=== PATIENT | female | born 1980 | race Caucasian/White ===

== ENCOUNTER 2017-04-04 02:48 | Emergency (ER) | payer MEDICARE, MEDICAID ==
[2017-04-04 03:02] VITALS: BP 121/58
[2017-04-04] MEDS ORDERED: IBUPROFEN 800 MG TABLET PO ONE (04:03)
[2017-04-04] MEDS ORDERED: MORPHINE SULFATE IR 15 MG TABLET PO ONE (04:05)
--- NOTE | 2017-04-04 04:13 | ER Document Report ---
ED General - General Chief Complaint: Breast Lump Stated Complaint: PAIN IN LEFT BREAST Time Seen by Provider: 04/04/17 03:53 Notes: Patient is a 37-year-old female who presents with 24 hours of pain to an area just below her left nipple. States that she saw her primary care doctor a week ago and this cystic mass was incidentally noticed. She is scheduled for a mammogram this upcoming week. States that over the past 24 hours it has become acutely painful and she does describe a constant, stabbing, severe pain to the affected area. It is worsened by touching the area. Nothing has been tried to improve the pain. No history of similar symptoms in the past. She denies any fever or constitutional symptoms. TRAVEL OUTSIDE OF THE [place] IN LAST 30 DAYS: No Past Medical History - General Information source: Patient - Social History Smoking Status: Never Smoker Frequency of alcohol use: None Drug Abuse: None Lives with: Spouse/Significant other Family History: Reviewed & Not Pertinent Patient has suicidal ideation: No Patient has homicidal ideation: No Renal/ Medical History: Denies: Hx Peritoneal Dialysis Review of Systems - Review of Systems Notes: Constitutional: Negative for fever. HENT: Negative for sore throat. Eyes: Negative for visual changes. Cardiovascular: Negative for chest pain. Respiratory: Negative for shortness of breath. Gastrointestinal: Negative for abdominal pain, vomiting or diarrhea. Genitourinary: Negative for dysuria. Musculoskeletal: Positive for left breast pain Skin: Negative for rash. Neurological: Negative for headaches, weakness or numbness. 10 point ROS negative except as marked above and in HPI. Physical Exam - Vital signs Vitals: Temp Pulse Resp BP Pulse Ox 98.5 F 89 20 121/58 L 100 04/04/17 03:01 04/04/17 03:01 04/04/17 03:01 04/04/17 03:01 04/04/17 03:01 Interpretation: Normal Notes: PHYSICAL EXAMINATION: GENERAL: Well-appearing, well-nourished and in no acute distress. HEAD: Atraumatic, normocephalic. EYES: Pupils equal round and reactive to light, extraocular movements intact, sclera anicteric, conjunctiva are normal. ENT: nares patent, oropharynx clear without exudates. Moist mucous membranes. NECK: Normal range of motion, supple without lymphadenopathy LUNGS: Breath sounds clear to auscultation bilaterally and equal. No wheezes rales or rhonchi. HEART: Regular rate and rhythm without murmurs Breasts: There is a small quarter centimeter by quarter centimeter cystic, mobile, exquisitely tender lesion just below the left areole a without induration, discharge from the nipple, or erythema. ABDOMEN: Soft, nontender, normoactive bowel sounds. No guarding, no rebound. No masses appreciated. EXTREMITIES: Normal range of motion, no pitting or edema. No cyanosis. NEUROLOGICAL: No focal neurological deficits. Moves all extremities spontaneously and on command. PSYCH: Normal mood, normal affect. SKIN: Warm, Dry, normal turgor, no rashes or lesions noted. Course - Re-evaluation Re-evalutation: 04/04/17 04:01 Patient presents with a painful, mobile, cystic lump to her left lower breast approximately 1/4 cm below the areola. There is no erythema or induration of the skin to suggest an acute abscess. She has no constitutional symptoms. She is already scheduled for an outpatient mammogram and consideration of biopsy which I believe is appropriate. No indication for additional acute labs or imaging at this time. Overall I suspect this is an inflamed cyst based on exam and history but I have instructed the patient to follow-up with her primary care doctor as scheduled for both a mammogram and biopsy to exclude a more concerning pathology. - Vital Signs Vital signs: Temp Pulse Resp BP Pulse Ox 98.5 F 89 20 121/58 L 100 04/04/17 03:01 04/04/17 03:01 04/04/17 03:01 04/04/17 03:01 04/04/17 03:01 Discharge - Discharge Clinical Impression: Left breast mass Condition: Good Disposition: HOME, SELF-CARE Additional Instructions: Please follow-up with your primary care doctor for the mammogram as scheduled. Take ibuprofen 800mg every 6 hours as needed for pain. You can apply lidocaine to the area as needed. There is a proximal [id number] cold Aspercreme with lidocaine which will work well. Return if you develop fever greater than 100.4F, increasing pain to the area, vomiting, difficulty breathing or any other symptoms that are worrisome to you.
== END 2017-04-04 05:15 | disposition home or self-care (01) ==
LOC: ER 02:48
DX: N63 Unspecified lump in breast (principal); N64.4 Mastodynia
CPT/HCPCS: 99283; A9270 ×2

== ENCOUNTER → 2017-04-27 | Outpatient (CLI) | payer MEDICARE, MEDICAID ==
--- NOTE | 2017-04-28 08:41 | WOMENS IMAGING REPORT ---
EXAM DESCRIPTION: BILAT DIAGNOSTIC MAMMO W/CAD; U/S BREAST UNILAT LIMITED COMPLETED DATE/TIME: 04/27/2017 8:32 am; 04/27/2017 9:05 am REASON FOR STUDY: N64.4, MASTODYNIA; LEFT BREAST LUMP N64.4 MASTODYNIA N63 UNSPECIFIED LUMP IN [place] AST COMPARISON: No previous TECHNIQUE: Standard craniocaudal and mediolateral oblique views of each breast recorded using digita l acquisition. Additional left breast 90 mediolateral view and left breast craniocaudad and MLO cone compression vi ews of the lower inner quadrant. Left breast ultrasound was also performed. LIMITATIONS: None. FINDINGS: RIGHT BREAST MASSES: No suspicious masses. CALCIFICATIONS: No new or suspicious calcifications. ARCHITECTURAL DISTORTION: None. DEVELOPING DENSITY: None. ASYMMETRY: None noted. OTHER: No other significant findings. LEFT BREAST MASSES: No suspicious masses. CALCIFICATIONS: No new or suspicious calcifications. ARCHITECTURAL DISTORTION: None. DEVELOPING DENSITY: None. ASYMMETRY: None noted. OTHER: No other significant finding. Read with the assistance of CAD: .[facility] - R2 Cenova Version 1.3 .[facility] Imaging - R2 Cenova Version 1.3 .[facility] Imaging - R2 Cenova Version 2.4 .[facility] [place] - R2 Cenova Version 2.4 .[facility] - R2 Animal [employer] Agent Version 9.2 Left breast ultrasound: Patient has a history of breast tenderness in the lower inner quadrant and questionable palpable nodu le. Ultrasound of the left breast lower inner quadrant 7 to 8 o'clock position demonstrates no discr ete cystic or solid lesions. No focal findings. No worrisome acoustic absorption. IMPRESSION: No mammographic evidence for malignancy right breast. No mammographic or sonographic evidence for malignancy left breast. BREAST DENSITY: d. The breasts are extremely dense, which lowers the sensitivity of mammography. BIRAD: 1 Negative. RECOMMENDATION: RECOMMENDED FOLLOW UP: Please continue yearly bilateral screening tomosynthesis SPECIFIC INTERVENTION/IMAGING/CONSULTATION RECOMMENDED:No additional intervention/ imaging/consultati on needed at this time. COMMUNICATION:Patient notified by letter COMMENT: The patient has been notified of the results by letter per SA requirements. Additional no tification policies are in place for contacting patient with suspicious or incomplete findings. Quality ID #[id number]: The [employer] recommends an annual screening mammogram for women aged 40 years or over. This facility utilizes a reminder system to ensure that all patients receive reminder letters, and/or direct phone calls for appointments. This includes reminders for routine scr eening mammograms, diagnostic mammograms, or other Breast Imaging Interventions when appropriate. Th is patient will be placed in the appropriate reminder system. The [employer] (ACR) has developed recommendations for screening MRI of the breast s in certain patient populations, to be used in conjunction with mammography. Breast MRI surveillanc e may be appropriate for women with more than 20% lifetime risk of developing breast cancer as deter mined by genetic testing, significant family history of the disease, or history of mantle radiation f or Hodgkins Disease. ACR Practice Guidelines 2008. TECHNICAL DOCUMENTATION: FINDING NUMBER: (1) ASSESSMENT: (1) JOB ID: [id number] [employer]- All Rights Reserved
--- NOTE | 2017-04-28 08:41 | WOMENS IMAGING REPORT ---
EXAM DESCRIPTION: BILAT DIAGNOSTIC MAMMO W/CAD; U/S BREAST UNILAT LIMITED COMPLETED DATE/TIME: 04/27/2017 8:32 am; 04/27/2017 9:05 am REASON FOR STUDY: N64.4, MASTODYNIA; LEFT BREAST LUMP N64.4 MASTODYNIA N63 UNSPECIFIED LUMP IN [place] AST COMPARISON: No previous TECHNIQUE: Standard craniocaudal and mediolateral oblique views of each breast recorded using digita l acquisition. Additional left breast 90 mediolateral view and left breast craniocaudad and MLO cone compression vi ews of the lower inner quadrant. Left breast ultrasound was also performed. LIMITATIONS: None. FINDINGS: RIGHT BREAST MASSES: No suspicious masses. CALCIFICATIONS: No new or suspicious calcifications. ARCHITECTURAL DISTORTION: None. DEVELOPING DENSITY: None. ASYMMETRY: None noted. OTHER: No other significant findings. LEFT BREAST MASSES: No suspicious masses. CALCIFICATIONS: No new or suspicious calcifications. ARCHITECTURAL DISTORTION: None. DEVELOPING DENSITY: None. ASYMMETRY: None noted. OTHER: No other significant finding. Read with the assistance of CAD: .[facility] - R2 Cenova Version 1.3 .[facility] Imaging - R2 Cenova Version 1.3 .[facility] Imaging - R2 Cenova Version 2.4 .[facility] - R2 Cenova Version 2.4 .[facility] - R2 [employer] Version 9.2 Left breast ultrasound: Patient has a history of breast tenderness in the lower inner quadrant and questionable palpable nodu le. Ultrasound of the left breast lower inner quadrant 7 to 8 o'clock position demonstrates no discr ete cystic or solid lesions. No focal findings. No worrisome acoustic absorption. IMPRESSION: No mammographic evidence for malignancy right breast. No mammographic or sonographic evidence for malignancy left breast. BREAST DENSITY: d. The breasts are extremely dense, which lowers the sensitivity of mammography. BIRAD: 1 Negative. RECOMMENDATION: RECOMMENDED FOLLOW UP: Please continue yearly bilateral screening tomosynthesis SPECIFIC INTERVENTION/IMAGING/CONSULTATION RECOMMENDED:No additional intervention/ imaging/consultati on needed at this time. COMMUNICATION:Patient notified by letter COMMENT: The patient has been notified of the results by letter per SA requirements. Additional no tification policies are in place for contacting patient with suspicious or incomplete findings. Quality ID #225: The [employer] recommends an annual screening mammogram for women aged 40 years or over. This facility utilizes a reminder system to ensure that all patients receive reminder letters, and/or direct phone calls for appointments. This includes reminders for routine scr eening mammograms, diagnostic mammograms, or other Breast Imaging Interventions when appropriate. Th is patient will be placed in the appropriate reminder system. The [employer] (ACR) has developed recommendations for screening MRI of the breast s in certain patient populations, to be used in conjunction with mammography. Breast MRI surveillanc e may be appropriate for women with more than 20% lifetime risk of developing breast cancer as deter mined by genetic testing, significant family history of the disease, or history of mantle radiation f or Hodgkins Disease. ACR Practice Guidelines 2008. TECHNICAL DOCUMENTATION: FINDING NUMBER: (1) ASSESSMENT: (1) JOB ID: [id number] [employer]- All Rights Reserved
== END ==
LOC: WI 09:52
PROVIDERS: ATTEND Nurse Practitioner Family
DX: N64.4 Mastodynia (principal)
CPT/HCPCS: 76642; G0204; 77066

== ENCOUNTER 2017-08-31 20:38 | Emergency (ER) | payer MEDICARE, MEDICAID ==
[2017-08-31] MEDS ORDERED: ONDANSETRON HCL INJ/PF 4 MG/2 ML SDV IV ONE (22:41)
[2017-08-31] MEDS ORDERED: NORMAL SALINE 1000 ML 1,000 ML IV ONE (22:41)
[2017-08-31] MEDS ORDERED: METOCLOPRAMIDE HCL INJ/PF 10 MG/2 ML SDV IV ONE (22:41)
--- NOTE | 2017-08-31 22:44 | ER Document Report ---
ED General - General Chief Complaint: Headache, nausea Stated Complaint: HEADACHE,ABDOMINAL PAIN Time Seen by Provider: 08/31/17 22:26 Notes: Patient is a 29-year-old female presents with complaints of a headache for 2 days. She says the headaches gradually worsened over time. It started as a mild headache has worsened. She is says now severe. She does have photophobia. Headache started left temporal region now radiates to the back of her head. No fevers. Some nausea. She denies any alcohol use or drug use. She is a smoker. She denies ever having similar headaches in the past. She denies any weakness or numbness into her extremities. She has no other complaints at this time. She denies trauma to her head. TRAVEL OUTSIDE OF THE [place] IN LAST 30 DAYS: No - Related Data Allergies/Adverse Reactions: diphenhydramine [From Benadryl] Allergy (Verified 08/31/17 20:58) erythromycin base Allergy (Verified 08/31/17 20:58) nafcillin Allergy (Verified 08/31/17 20:58) Home Medications: Current Home Medications No Home Medications 08/31/17 [History] Past Medical History - Social History Smoking Status: Current Every Day Smoker Frequency of alcohol use: None Drug Abuse: None Family History: Reviewed & Not Pertinent Renal/ Medical History: Denies: Hx Peritoneal Dialysis - Immunizations Hx Diphtheria, Pertussis, Tetanus Vaccination: No Review of Systems - Review of Systems Notes: My Normal Review Basic REVIEW OF SYSTEMS: CONSTITUTIONAL : Denies fever, chills, or sweats. Denies recent illness. EENT: Denies eye, ear, throat, or mouth pain or symptoms. Denies nasal or sinus congestion. CARDIOVASCULAR: Denies chest pain. RESPIRATORY: Denies cough, cold, or chest congestion. Denies shortness of breath, difficulty breathing, or wheezing. GASTROINTESTINAL: Denies abdominal pain. Nausea. GENITOURINARY: Denies difficulty urinating, painful urination, burning, frequency, or blood in urine. MUSCULOSKELETAL: Denies neck or back pain or joint pain or swelling. SKIN: Chronic skin rash since child. NEUROLOGICAL: Denies altered mental status or loss of consciousness. Has a headache. Denies weakness or paralysis or loss of use of either side. Denies problems with gait or speech. Denies sensory or motor loss. ALL OTHER SYSTEMS REVIEWED AND NEGATIVE. Physical Exam - Vital signs Vitals: Temp Pulse Resp BP Pulse Ox 97.3 F 80 15 121/61 100 08/31/17 20:54 08/31/17 20:54 08/31/17 20:54 08/31/17 20:54 08/31/17 20:54 - Notes Notes: General Appearance: Well nourished, alert, cooperative, no acute distress, moderate obvious discomfort. Vitals: reviewed, See vital signs table. Head: no swelling or tenderness to the head Eyes: PERRL, EOMI, Conjuctiva clear Mouth: No decreasd moisture Neck: Supple, no neck tenderness, No thyromegaly Lungs: No wheezing, No rales, No rhonci, No accessory muscle use, good air exchange bilaterally. Heart: Normal rate, Regular rythm, No murmur, no rub Abdomen: Normal BS, soft, No rigidity, No abdominal tenderness, No guarding, no rebound, no abdominal masses, no organomegaly Extremities: strength 5/5 in all extremities, good pulses in all extremities, no swelling or tenderness in the extremities, no edema. Skin: warm, dry, appropriate color, patient has no excoriations or skin especially over the upper back. Is consistent with atopic dermatitis and severe eczema. She has scarring and areas from where she has had this rash on the past that has left scars. Neuro: speech clear, oriented x 3, normal affect, responds appropriately to questions. Cranial nerves II through XII are intact. Distal sensation intact. Patient moves all extremities without difficulty. Normal Romberg. Normal gait. Course - Re-evaluation Re-evalutation: 09/01/17 00:59 Went reevaluate the patient. She says her head still hurts. Before giving her any type of opiate medication I want to discuss with her lumbar puncture option. I informed her that the CTA of the head was negative for aneurysm however this is not 100% sensitive. Informed that this is sensitive for a sub arachnoid hemorrhage and aneurysms however not 100% and that the only thing that would be 100% his lumbar puncture. I did talked about lumbar puncture and offered to do a lumbar puncture and told her that this is what we recommend this is the one test that would 100% rule out sub arachnoid hemorrhage which is life-threatening. Patient adamantly refuses to have a lumbar puncture done. She immediately tells me no and repeats it multiple times. Patient says she is comfortable with the CTA and does not agree to lumbar puncture. Patient will be given for the pain medicine to help control her headache. Dictation of this chart was performed using voice recognition software; therefore, there may be some unintended grammatical errors. 09/01/17 08:11 Patient still has some headache. She refuses lumbar puncture. Informed her to please return to ER immediately if her headache worsens or if she is not improving. Patient is given a shot of Decadron for leaving. Patient is agreeable to this and will be discharged as she requests. Dictation of this chart was performed using voice recognition software; therefore, there may be some unintended grammatical errors. - Vital Signs Vital signs: Temp Pulse Resp BP Pulse Ox 98.0 F 91 16 101/49 L 100 09/01/17 01:56 09/01/17 01:56 09/01/17 01:56 09/01/17 01:56 09/01/17 01:56 - Laboratory Result Diagrams: 08/31/17 23:10 08/31/17 23:10 Discharge - Discharge Clinical Impression: Headache Qualifiers: Headache type: unspecified Headache chronicity pattern: acute headache Intractability: intractable Qualified Code(s): R51 - Headache Condition: Stable Disposition: HOME, SELF-CARE Additional Instructions: Please rest over the next 24 hours. Please drink lots of fluids. Please have a low threshold to return to the ER if you have worsening headache, vomiting, or feel unwell. As discussed with you the CT scan we performed is sensitive for detecting brain aneurysm and brain bleeding, but it is not 100% sensitive. The only thing that is 100% sensitive is a lumbar puncture. We respect your decision not to have this test performed, but we do recommend it; therefore please have a low threshold to return to the ER if you are feeling worse or if your headache is not improving.
[2017-08-31 23:40] LABS: ABSOLUTE BASOPHILS # (AUTO) 0.1 10^3/uL (0.0-0.2); ABSOLUTE EOSINOPHILS # (AUTO) 0.2 10^3/uL (0.0-0.6); ABSOLUTE LYMPHOCYTES (AUTO) 2.2 10^3/uL (0.5-4.7); ABSOLUTE MONOCYTES (AUTO) 0.6 10^3/uL (0.1-1.4); ABSOLUTE NEUT (AUTO) 6.1 10^3/uL (1.7-8.2); BASOPHILS % (AUTO) 0.7 % (0-2); EOSINOPHILS % (AUTO) 1.7 % (0-6); HEMATOCRIT 37.9 % (36.0-47.0); HEMOGLOBIN 13.2 g/dL (12.0-15.5); HGB HCT DIFFERENCE 1.7; LYMPHOCYTES % (AUTO) 23.9 % (13-45); MEAN CORPUSCULAR HEMOGLOBIN 30.4 pg (27.0-33.4); MEAN CORPUSCULAR HGB CONC 34.8 g/dL (32.0-36.0); MEAN CORPUSCULAR VOLUME 87 fl (80-97); MONOCYTES % (AUTO) 6.5 % (3-13); RED BLOOD COUNT 4.33 10^6/uL (3.72-5.28); RED CELL DISTRIBUTION WIDTH 12.8 % (11.5-14.0); SEGMENTED NEUTROPHILS % (AUTO) 67.2 % (42-78); WHITE BLOOD COUNT 9.1 10^3/uL (4.0-10.5)
[2017-09-01 00:11] LABS: ANION GAP 10 (5-19); BLOOD UREA NITROGEN 14 mg/dL (7-20); CALCIUM 9.4 mg/dL (8.4-10.2); CARBON DIOXIDE 27 mmol/L (22-30); CHLORIDE 107 mmol/L (98-107); CREATININE RESULT 0.59 mg/dL (0.52-1.25); GLUCOSE 84 mg/dL (75-110); POTASSIUM 3.6 mmol/L (3.6-5.0); SODIUM 144.3 mmol/L (137-145)
--- NOTE | 2017-09-01 00:33 | RADIOLOGY REPORT (SQ) ---
EXAM DESCRIPTION: CTA HEAD COMPLETED DATE/TIME: 08/31/2017 11:50 pm REASON FOR STUDY: headache COMPARISON: None. TECHNIQUE: Post IV contrast scanning, thin section axial imaging through the brain to evaluate the a rterial structures. Source and MIP images are saved and reviewed on PACS. Advanced 3D imaging as volume-rendering, MIPs, SSD performed? yes All CT scanners at this facility use dose modulation, iterative reconstruction, and/or weight based d osing when appropriate to reduce radiation dose to as low as reasonably achievable (ALARA). [facility]: Dose Right [facility]: CareDose [facility]: Dose Right [facility]: Teradose 4D [facility]: Novaled CONTRAST TYPE AND DOSE: contrast/concentration: Isovue 370.00 mg/ml; Total Contrast Delivered: 70.0 ml; Total Saline Delivered: 75.1 ml RENAL FUNCTION: None required. The patient is less than 50 years old. LIMITATIONS: None. FINDINGS: [place]: The anterior, middle, posterior cerebral arteries are all patent. No ev idence of aneurysm or focal stenosis. POSTERIOR CIRCULATION: The distal vertebral arteries are patent as is the basilar artery. No aneurysm . BRAIN: No gross enhancing lesions as visualized. The superior cerebral hemispheres are not included in the field of view. BONES: Intact as visualized. SINUSES: No fluid or mucosal thickening. OTHER: No other significant finding. IMPRESSION: NO CTA EVIDENCE OF STENOSIS OR ANEURYSM OF THE [place]. TECHNICAL DOCUMENTATION: JOB ID: [id number] Quality ID # [id number]: Final reports with documentation of one or more dose reduction techniques (e.g., Au tomated exposure control, adjustment of the mA and/or kV according to patient size, use of iterative reconstruction technique) 2010 [employer]- All Rights Reserved
[2017-09-01] MEDS ORDERED: HYDROMORPHONE HCL INJ/PF 2 MG/ML AMPULE IV ONE (00:58)
[2017-09-01] MEDS ORDERED: KETOROLAC TROMETHAMINE INJ/PF 30 MG/1 ML SDV IV ONE (00:58)
[2017-09-01] MEDS ORDERED: DEXAMETHASONE SOD PHOS INJ 10 MG/1 ML VIAL IV ONE (01:46)
[2017-09-01 02:18] VITALS: BP 101/49
== END 2017-09-01 02:21 | disposition home or self-care (01) ==
LOC: ER 20:38
DX: R51 Headache (principal); R11.0 Nausea; R10.9 Unspecified abdominal pain; F17.200 Nicotine dependence, unspecified, uncomplicated
CPT/HCPCS: 99284; 36415; 84703; 85025; 80048; 70496; J1885; J2765; J1170; J2405; J7030; J1100

== ENCOUNTER 2018-03-24 19:50 | Emergency (ER) | payer MEDICARE, MEDICAID ==
[2018-03-24] MEDS ORDERED: ASPIRIN 81 MG TABLET, CHEWABLE PO ONE (20:00)
--- NOTE | 2018-03-24 20:48 | RADIOLOGY REPORT (SQ) ---
EXAM DESCRIPTION: CHEST SINGLE VIEW COMPLETED DATE/TIME: 03/24/2018 8:22 pm REASON FOR STUDY: cp COMPARISON: None. EXAM PARAMETERS: NUMBER OF VIEWS: One view. TECHNIQUE: Single frontal radiographic view of the chest acquired. RADIATION DOSE: NA LIMITATIONS: None. FINDINGS: LUNGS AND PLEURA: No opacities, masses or pneumothorax. No pleural effusion. MEDIASTINUM AND HILAR STRUCTURES: No masses. Contour normal. HEART AND VASCULAR STRUCTURES: Heart normal in size. Normal vasculature. BONES: No acute findings. HARDWARE: None in the chest. OTHER: No other significant finding. IMPRESSION: NO ACUTE RADIOGRAPHIC FINDING IN THE CHEST. TECHNICAL DOCUMENTATION: JOB ID: [id number] [employer]- All Rights Reserved Reading location - IP/workstation name: [email or web address]
[2018-03-24] MEDS ORDERED: ASPIRIN 81 MG TABLET, CHEWABLE ONE (21:07)
--- NOTE | 2018-03-24 22:13 | ER Document Report ---
ED General - General Chief Complaint: Chest Pain Stated Complaint: CHEST PAIN Time Seen by Provider: 03/24/18 22:11 Notes: Patient is a 38-year-old female who presents with complaints of episodes include chest pain. Patient said she was other kids karate class and she suddenly felt a uneasy feeling come across her body. She then developed some nausea and some epigastric abdominal pain. She then developed some fluttering in her heart some left-sided chest pain. Symptoms lasted approximately 20 minutes and eventually went away. She says she does have history of anxiety and panic attacks but this felt a little bit different that her typical panic attack involves tightness in her chest and this time she had more of pain to the left side of her chest. She is a smoker. She denies any alcohol. No drugs. She does have family history of coronary disease and that her dad recently from a heart attack. That was her dad's first heart attack. No history of coronary disease at a young age. She takes no medications and is otherwise healthy. She denies any leg pain or leg swelling. No other complaints at this time. TRAVEL OUTSIDE OF THE [place] IN LAST 30 DAYS: No - Related Data Allergies/Adverse Reactions: diphenhydramine [From Benadryl] Allergy (Verified 03/24/18 19:52) erythromycin base Allergy (Verified 03/24/18 19:52) nafcillin Allergy (Verified 03/24/18 19:52) Past Medical History - Social History Smoking Status: Current Every Day Smoker Chew tobacco use (# tins/day): No Frequency of alcohol use: None Drug Abuse: None Family History: Reviewed & Not Pertinent Patient has suicidal ideation: No Patient has homicidal ideation: No Renal/ Medical History: Denies: Hx Peritoneal Dialysis Psychiatric Medical History: Reports: Hx Depression - and ANXIETY Past Surgical History: Reports: Hx Breast Surgery - cyst removal, Hx Section, Hx Tubal Ligation - Immunizations Hx Diphtheria, Pertussis, Tetanus Vaccination: No Review of Systems - Review of Systems Notes: My Normal Review Basic REVIEW OF SYSTEMS: CONSTITUTIONAL : Denies fever, chills, or sweats. Denies recent illness. EENT: Denies eye, ear, throat, or mouth pain or symptoms. Denies nasal or sinus congestion. CARDIOVASCULAR: Chest pain RESPIRATORY: Denies cough, cold, or chest congestion. Denies shortness of breath, difficulty breathing, or wheezing. GASTROINTESTINAL: Brief epigastric abdominal pain. Some nausea. No vomiting. GENITOURINARY: Denies difficulty urinating, painful urination, burning, frequency, or blood in urine. MUSCULOSKELETAL: Denies neck or back pain or joint pain or swelling. SKIN: Denies rash or skin lesions. NEUROLOGICAL: Denies altered mental status or loss of consciousness. Denies headache. Denies weakness or paralysis or loss of use of either side. Denies problems with gait or speech. Denies sensory or motor loss. PSYCHIATRIC: History of anxiety. ALL OTHER SYSTEMS REVIEWED AND NEGATIVE. Physical Exam - Vital signs Vitals: Temp Pulse Resp BP Pulse Ox 97.9 F 82 18 121/75 100 03/24/18 20:12 03/24/18 20:12 03/24/18 20:12 03/24/18 20:12 03/24/18 20:12 - Notes Notes: General Appearance: Well nourished, alert, cooperative, no acute distress, no obvious discomfort. Well-appearing. Vitals: reviewed, See vital signs table. Head: no swelling or tenderness to the head Eyes: PERRL, EOMI, Conjuctiva clear Mouth: No decreasd moisture Lungs: No wheezing, No rales, No rhonci, No accessory muscle use, good air exchange bilaterally. Heart: Normal rate, Regular rythm, No murmur, no rub Abdomen: Normal BS, soft, No rigidity, No abdominal tenderness, No guarding, no rebound, no abdominal masses, no organomegaly Extremities: strength 5/5 in all extremities, good pulses in all extremities, no swelling or tenderness in the extremities, no edema. Skin: Tubal patches of skin excoriations the patients that are related to a chronic atopic dermatitis. Neuro: speech clear, oriented x 3, normal affect, responds appropriately to questions. Course - Re-evaluation Re-evalutation: 03/24/18 23:50 I do not suspect patient's chest pain is related coronary disease. She has a heart score of 1. She has no risk factors. Early family history of coronary disease with her father who did not have an OH until a much older age. Patient does have history anxiety and panic attacks. It is possible that her pain tonight could have been related to anxiety or panic but as I informed her there is no specific test that tells us 100% this is related to anxiety. She is PERC rule negative. She has no risk factors for PE. She currently looks well and feels improved. I feel she is safe to be discharged home. I strongly encouraged her return to ER if she has recurrent worsening chest pain, difficulty breathing, fevers, or feels unwell. Patient agrees with plan will be discharged home. Dictation of this chart was performed using voice recognition software; therefore, there may be some unintended grammatical errors. - Vital Signs Vital signs: Temp Pulse Resp BP Pulse Ox 97.9 F 82 18 121/75 100 03/24/18 20:12 03/24/18 20:12 03/24/18 20:12 03/24/18 20:12 03/24/18 20:12 - Laboratory Result Diagrams: 03/24/18 22:22 03/24/18 22:22 Laboratory results interpreted by me: 03/24/18 22:22 Sodium 146.7 H Potassium 3.2 L Chloride 108 H - EKG Interpretation by Me Additional EKG results interpreted by me: 03/24/18 22:13 EKG is reviewed and interpreted by me. EKG shows sinus rhythm with rate of [address] segment elevation or depression. No ischemic T-wave inversions. [place] interval, QRS duration, QTc intervals are within normal range. No old EKG available for comparison. Discharge - Discharge Clinical Impression: Hypokalemia Chest pain Qualifiers: Chest pain type: unspecified Qualified Code(s): R07.9 - Chest pain, unspecified Condition: Good Disposition: HOME, SELF-CARE Additional Instructions: CHEST PAIN OF UNCLEAR CAUSE: The exact cause of your chest pain isn't clear. Fortunately, there is no evidence of a dangerous medical condition. Further testing may be required to find the source of the pain. Most often, we find that this pain is coming from the chest wall -- the muscles or rib joints in the chest. But chest pain can come from the lung and lung lining, the esophagus, the heart valves or heart lining, and even the stomach or gallbladder. Rest. Eat lightly until the pain is gone. We may prescribe medicine for pain and inflammation. You should call the physician immediately if the pain radiates to the shoulder, jaw or arms; if you start to run a fever or develop a cough; or if you develop shortness of breath, or other new or alarming symptoms. FOLLOW-UP CARE: If you have been referred to a physician for follow-up care, call the physician s office for an appointment as you were instructed or within the next two days. If you experience worsening or a significant change in your symptoms, notify the physician immediately or return to the Emergency Department at any time for re-evaluation. Please return to the ER immediately if you have worsening pain, difficulty breathing, fevers, or feel that you are worsening in any way. Referrals: BARAK NUNO PA-C [NO LOCAL MD] - 03/26/18
[2018-03-24 22:33] LABS: ABSOLUTE LYMPHOCYTES (AUTO) 1.9 10^3/uL (0.5-4.7); ABSOLUTE MONOCYTES (AUTO) 0.7 10^3/uL (0.1-1.4); ABSOLUTE NEUT (AUTO) 7.8 10^3/uL (1.7-8.2); BASOPHILS % (AUTO) 0.3 % (0-2); EOSINOPHILS % (AUTO) 0.4 % (0-6); HEMATOCRIT 43.2 % (36.0-47.0); HEMOGLOBIN 14.8 g/dL (12.0-15.5); LYMPHOCYTES % (AUTO) 18.4 % (13-45); MEAN CORPUSCULAR HGB CONC 34.3 g/dL (32.0-36.0); MEAN CORPUSCULAR VOLUME 88 fl (80-97); MONOCYTES % (AUTO) 6.5 % (3-13); PLATELET COUNT 320 10^3/uL (150-450); RED BLOOD COUNT 4.93 10^6/uL (3.72-5.28); RED CELL DISTRIBUTION WIDTH 12.6 % (11.5-14.0); SEGMENTED NEUTROPHILS % (AUTO) 74.4 % (42-78); TOTAL CELLS COUNTED % (AUTO) 100 %; WHITE BLOOD COUNT 10.4 10^3/uL (4.0-10.5)
[2018-03-24 22:50] LABS: ALANINE AMINOTRANSFERASE 29 U/L (9-52); ALBUMIN 4.7 g/dL (3.5-5.0); ALKALINE PHOSPHATASE 87 U/L (38-126); ANION GAP 11 (5-19); ASPARTATE AMINO TRANSFERASE 19 U/L (14-36); BILIRUBIN,DIRECT 0.1 mg/dL (0.0-0.4); BILIRUBIN,TOTAL 0.5 mg/dL (0.2-1.3); BLOOD UREA NITROGEN 7 mg/dL (7-20); CALCIUM 10.2 mg/dL (8.4-10.2); CARBON DIOXIDE 28 mmol/L (22-30); CHLORIDE 108 mmol/L (98-107); CREATINE KINASE 63 U/L (30-135); GLUCOSE 89 mg/dL (75-110); POTASSIUM 3.2 mmol/L (3.6-5.0); SODIUM 146.7 mmol/L (137-145); TOTAL PROTEIN 7.5 g/dL (6.3-8.2)
[2018-03-24 23:01] LABS: CREATINE KINASE MB 1.74 ng/mL (<4.55)
[2018-03-24 23:05] LABS: TROPONIN I < 0.012 ng/mL
[2018-03-24] MEDS ORDERED: POTASSIUM CHLORIDE 10 MEQ TABLET.SA PO ONE (23:39)
[2018-03-24 23:58] VITALS: BP 125/83
--- NOTE | 2018-03-25 07:31 | EKG REPORT ---
SEVERITY:- ABNORMAL ECG - SINUS RHYTHM INCOMPLETE RIGHT BUNDLE BRANCH BLOCK : Confirmed by: Ken Arciniega MD 25-Mar-2018 07:30:31
== END 2018-03-24 23:58 | disposition home or self-care (01) ==
LOC: ER 19:50
DX: R07.9 Chest pain, unspecified (principal); E87.6 Hypokalemia; R11.0 Nausea; R10.13 Epigastric pain; R09.89 Other specified symptoms and signs involving the circulatory and respiratory systems; L20.9 Atopic dermatitis, unspecified; F17.200 Nicotine dependence, unspecified, uncomplicated; Z82.49 Family history of ischemic heart disease and other diseases of the circulatory system; Z88.8 Allergy status to other drugs, medicaments and biological substances; Z88.1 Allergy status to other antibiotic agents; Z88.0 Allergy status to penicillin
CPT/HCPCS: 93005; 99285; 36415; 82553; 82550; 85025; 80053; 84484; 71045; 93010; A9270 ×2

== ENCOUNTER 2018-04-20 14:56 | Emergency (ER) | payer MEDICARE, MEDICAID ==
[2018-04-20] MEDS ORDERED: OXYCODONE-ACETAMINOPHEN 5-325 MG TABLET PO ONE (15:42)
--- NOTE | 2018-04-20 15:42 | ER Document Report ---
ED General - General Chief Complaint: Urinary Problem Stated Complaint: URINARY PROBLEMS Time Seen by Provider: 04/20/18 15:38 Mode of Arrival: Ambulatory Information source: Patient Notes: Chief complaint: Dysuria History of complain:( obtained from----patient) 38 years old female with a history of chronic urinary tract infection, ureterovesical reflux, eczema presents today with lower abdominal pain dysuria frequency and urgency. Denies any fever chills. Onset: As above last Duration: Few days Severity: Moderate Quality: Sharp Context: As above none Exacerbating factor and relieving factors: REVIEW OF SYSTEMS: CONSTITUTIONAL : Denies fever, chills, or sweats. Denies recent illness. EENT: Denies eye, ear, throat, or mouth pain or symptoms. Denies nasal or sinus congestion or discharge. Denies throat, tongue, or mouth swelling or difficulty swallowing. CARDIOVASCULAR: Denies chest pain. Denies palpitations or racing or irregular heart beat. Denies ankle edema. RESPIRATORY: Denies cough, cold, or chest congestion. Denies shortness of breath, difficulty breathing, or wheezing. GASTROINTESTINAL: Denies distention. Denies nausea, vomiting, or diarrhea. Denies blood in vomitus, stools, or per rectum. Denies black, tarry stools. Denies constipation. GENITOURINARY: Denies difficulty urinating, painful urination, burning, frequency, blood in urine, or discharge. FEMALE GENITOURINARY: Denies vaginal bleeding, heavy or abnormal periods, irregular periods. Denies vaginal discharge or odor. MUSCULOSKELETAL: Denies back or neck pain or stiffness. Denies joint pain or swelling. SKIN: Denies rash, lesions or sores. HEMATOLOGIC : Denies easy bruising or bleeding. LYMPHATIC: Denies swollen, enlarged glands. NEUROLOGICAL: Denies confusion or altered mental status. Denies passing out or loss of consciousness. Denies dizziness or lightheadedness. Denies headache. Denies weakness or paralysis or loss of use of either side. Denies problems with gait or speech. Denies sensory loss, numbness, or tingling. Denies seizures. PSYCHIATRIC: Denies anxiety or stress. Denies depression, suicidal ideation, or homicidal ideation. ALL OTHER SYSTEMS REVIEWED AND NEGATIVE. PHYSICAL EXAMINATION: GENERAL: Well-appearing, well-nourished and in no acute distress. Lean body mass HEAD: Atraumatic, normocephalic. EYES: Pupils equal round and reactive to light, extraocular movements intact, conjunctiva are normal. ENT: Nares patent, oropharynx clear without exudates. Moist mucous membranes. NECK: Normal range of motion, supple without lymphadenopathy LUNGS: Breath sounds clear to auscultation bilaterally and equal. No wheezes rales or rhonchi. HEART: Regular rate and rhythm without murmurs ABDOMEN: Soft, nontender, nondistended abdomen. No guarding, no rebound. No masses appreciated. Examination of genitals-deferred Musculoskeletal: Normal range of motion, no pitting or edema. No cyanosis. NEUROLOGICAL: Cranial nerves grossly intact. Normal speech, normal gait. Normal sensory, motor exams PSYCH: Normal mood, normal affect. SKIN: Diffuse erythematous maculopapular scaly rash throughout the whole body, some scarring over the back of the neck and upper back. Dictation was performed using [employer] voice recognition software dysuria TRAVEL OUTSIDE OF THE [place] IN LAST 30 DAYS: No - HPI Patient complains to provider of: Dictated Context: Dictated Notes: Dictated - Related Data Allergies/Adverse Reactions: diphenhydramine [From Benadryl] Allergy (Verified 04/20/18 14:59) erythromycin base Allergy (Verified 04/20/18 14:59) nafcillin Allergy (Verified 04/20/18 14:59) Past Medical History - General Information source: Patient - Social History Smoking Status: Unknown if Ever Smoked Cigarette use (# per day): No Chew tobacco use (# tins/day): No Smoking Education Provided: No Frequency of alcohol use: Rare Drug Abuse: None Lives with: Family Family History: Reviewed & Not Pertinent Patient has suicidal ideation: No Patient has homicidal ideation: No Other: Dictated Renal/ Medical History: Denies: Hx Peritoneal Dialysis Psychiatric Medical History: Reports: Hx Depression - and ANXIETY Past Surgical History: Reports: Hx Breast Surgery - cyst removal, Hx Section, Hx Tubal Ligation - Immunizations Hx Diphtheria, Pertussis, Tetanus Vaccination: No Review of Systems - Review of Systems Notes: Dictated Physical Exam - Vital signs Vitals: Temp Pulse Resp BP Pulse Ox 98.6 F 88 18 126/68 H 100 04/20/18 15:05 04/20/18 15:05 04/20/18 15:04/20/18 15:05 04/20/18 15:05 - Notes Notes: Dictated Course - Vital Signs Vital signs: Temp Pulse Resp BP Pulse Ox 98.6 F 88 18 126/68 H 100 04/20/18 15:05 04/20/18 15:05 04/20/18 15:05 04/20/18 15:05 04/20/18 15:05 - Laboratory Laboratory results interpreted by me: 04/20/18 15:25 Urine Blood SMALL H Ur Leukocyte Esterase LARGE H Discharge - Discharge Clinical Impression: Urinary tract infection Qualifiers: Urinary tract infection type: acute cystitis Hematuria presence: without hematuria Qualified Code(s): N30.00 - Acute cystitis without hematuria Eczema Qualifiers: Eczema type: other Qualified Code(s): L30.8 - Other specified dermatitis Condition: Fair Disposition: HOME, SELF-CARE Instructions: Nitrofurantoin ([facility]), Urinary Anesthetic Agent ([facility]), Urinary Tract Infection ([facility]) Prescriptions: Nitrofurantoin Monohyd/M-Cryst [Nitrofurantoin [place]-Mcr 100 mg] 100 mg PO QID # 40 capsule Referrals: ENRRIQUE ALVARADO FNP [Primary Care Provider] - Follow up as needed
[2018-04-20 15:58] LABS: AMORPHOUS SEDIMENT,URINE TRACE /HPF; APPEARANCE,URINE CLEAR; BILIRUBIN,URINE NEGATIVE (NEGATIVE); COLOR,URINE STRAW; GLUCOSE, URINE NEGATIVE (NEGATIVE); KETONES,URINE NEGATIVE (NEGATIVE); LEUKOCYTE ESTERASE,URINE LARGE (NEGATIVE); NITRITE,URINE NEGATIVE (NEGATIVE); PROTEIN,URINE NEGATIVE (NEGATIVE); URINE SPECIFIC GRAVITY 1.004; UROBILINOGEN,URINE NEGATIVE mg/dL (<2.0)
[2018-04-20] MEDS ORDERED: KETOROLAC TROMETHAMINE 60 MG/2 ML SDV IM ONE (16:36)
[2018-04-20 16:58] VITALS: BP 112/72
== END 2018-04-20 16:56 | disposition home or self-care (01) ==
LOC: ER 14:56
DX: N30.00 Acute cystitis without hematuria (principal); L30.9 Dermatitis, unspecified; Z88.8 Allergy status to other drugs, medicaments and biological substances; Z88.1 Allergy status to other antibiotic agents; Z88.0 Allergy status to penicillin
CPT/HCPCS: 99283; 96372; 81001; J1885; A9270

== ENCOUNTER 2018-05-16 18:53 | Emergency (ER) | payer MEDICARE, MEDICAID ==
[2018-05-16] MEDS ORDERED: KETOROLAC TROMETHAMINE INJ/PF 30 MG/1 ML SDV IV ONE (19:49)
--- NOTE | 2018-05-16 20:08 | ER Document Report ---
ED GI/ - General Chief Complaint: Abdominal Pain Stated Complaint: ABDOMEN PAIN Time Seen by Provider: 05/16/18 19:38 Mode of Arrival: Ambulatory Information source: Patient Notes: Patient is a 38-year-old female who presents to the emergency department with chief complaint of left flank pain, abdominal pain and vomiting for the past 3- 4 days. Patient reports that she vomits approximately 30 minutes after she eats. Patient reports that this is been ongoing for the last 3-4 days without relief. Patient reports past medical history of IBS. Patient reports even if she drinks a small amount of liquid she vomits. Patient denies any fever, dysuria or urinary frequency. TRAVEL OUTSIDE OF THE [place] IN LAST 30 DAYS: No - Related Data Allergies/Adverse Reactions: diphenhydramine [From Benadryl] Allergy (Verified 04/20/18 14:59) erythromycin base Allergy (Verified 04/20/18 14:59) nafcillin Allergy (Verified 04/20/18 14:59) Past Medical History - General Information source: Patient - Social History Smoking Status: Never Smoker Chew tobacco use (# tins/day): No Frequency of alcohol use: None Drug Abuse: None Family History: Reviewed & Not Pertinent Patient has suicidal ideation: No Patient has homicidal ideation: No Renal/ Medical History: Denies: Hx Peritoneal Dialysis GI Medical History: Reports: Hx Irritable Bowel Psychiatric Medical History: Reports: Hx Depression - and ANXIETY Past Surgical History: Reports: Hx Breast Surgery - cyst removal, Hx Section - x2, Hx Tubal Ligation - Immunizations Hx Diphtheria, Pertussis, Tetanus Vaccination: No Review of Systems - Review of Systems Constitutional: No symptoms reported EENT: No symptoms reported Cardiovascular: No symptoms reported Respiratory: No symptoms reported Gastrointestinal: See HPI Genitourinary: No symptoms reported Female Genitourinary: No symptoms reported Musculoskeletal: No symptoms reported Skin: No symptoms reported Hematologic/Lymphatic: No symptoms reported Neurological/Psychological: No symptoms reported Physical Exam - Vital signs Vitals: Temp Pulse Resp BP Pulse Ox 97.9 F 94 16 126/75 H 99 05/16/18 19:01 05/16/18 19:01 05/16/18 19:01 05/16/18 19:01 05/16/18 19:01 - Notes Notes: PHYSICAL EXAMINATION: GENERAL: Well-appearing, well-nourished and in no acute distress. HEAD: Atraumatic, normocephalic. EYES: Pupils equal round and reactive to light, extraocular movements intact, conjunctiva are normal. ENT: Nares patent, oropharynx clear without exudates. Moist mucous membranes. NECK: Normal range of motion, supple without lymphadenopathy LUNGS: Breath sounds clear to auscultation bilaterally and equal. No wheezes rales or rhonchi. HEART: Regular rate and rhythm without murmurs ABDOMEN: Soft, nondistended abdomen. No guarding, no rebound. No masses appreciated. Generalized tenderness to palpation. Female : Left sided CVA tenderness. Musculoskeletal: Normal range of motion, no pitting or edema. No cyanosis. NEUROLOGICAL: Cranial nerves grossly intact. Normal speech, normal gait. Normal sensory, motor exams PSYCH: Normal mood, normal affect. SKIN: Warm, Dry, normal turgor, no rashes or lesions noted. Course - Re-evaluation Re-evalutation: 38-year-old female patient presenting with chief complaint of left-sided abdominal pain for the last 3-4 days. Patient reports this is actually been ongoing for several months however she reports it has gotten worse over the last few days. Patient reports the pain is in her left flank and radiates to her entire abdomen. Patient reports vomiting with any foods or liquids. Initial workup reveals a CBC, CMP, lipase, urinalysis which are all unremarkable. HCG is negative. Examination with tenderness to palpation to left flank and left mid abdomen. No pain to right side of abdomen. No rebound no guarding. Not concerned for appendicitis. Patient has not vomited while in the department. Patient reports significant reduction of symptoms after 1 L normal saline bolus and administration of both IV Toradol and IV Zofran. Patient reports history of IBS, patient reports that she is currently being worked up by her primary care provider for the same symptoms and reports that she is pending referral to gastroenterology. Patient will be discharged home with prescription for pain and nausea medication with plans to see her primary care provider in the next 2-3 days for follow-up. Patient encouraged to return to the emergency department if she develops fever, worsening abdominal pain or any other symptom that is concerning to her. - Vital Signs Vital signs: Temp Pulse Resp BP Pulse Ox 98.2 F 74 16 107/55 L 100 05/16/18 23:42 05/16/18 23:42 05/16/18 23:42 05/16/18 23:42 05/16/18 23:42 - Laboratory Result Diagrams: 05/16/18 20:01 05/16/18 20:01 Laboratory results interpreted by me: 05/16/18 05/16/18 20:01 21:03 Sodium 146.7 H Urine Protein 30 H Urine Urobilinogen 2.0 H Urine Ascorbic Acid 40 H Discharge - Discharge Clinical Impression: Abdominal pain Qualifiers: Abdominal location: left lower quadrant Qualified Code(s): R10.32 - Left lower quadrant pain Vomiting Qualifiers: Vomiting type: unspecified Vomiting Intractability: unspecified Nausea presence : unspecified Qualified Code(s): R11.10 - Vomiting, unspecified Condition: Stable Disposition: HOME, SELF-CARE Additional Instructions: ABDOMINAL PAIN: There are many causes of abdominal pain. Pain can mean a serious problem requiring surgery (such as appendicitis). It can also be an innocent problem that goes away on its own (such as a viral infection). Often, time must pass to determine the cause of pain. The physician does not feel that hospitalization is necessary, at present. Things may change within the next 24 hours. Call the doctor or come back for re- examination if any problems occur, such as: (1) Pain that becomes more severe, steady, or becomes concentrated in one specific area. Also, pain that is more severe with movement or coughing. (2) Vomiting that persists or becomes more frequent. (3) Blood in the vomitus, urine, or bowel movements. Blood in the stool may have a tarry or black appearance. (4) Shaking chills or fever greater than 100 degrees F. (5) The abdomen becomes more distended or swollen. (6) Bowel movements cease. (7) Failure to improve as expected. NORMAL EXAM AND WORKUP: At this time, your examination and workup show no significant abnormality. No significant abnormal physical findings are noted. All laboratory, EKG, and imaging (x-ray, CT scans, ultrasound) studies that were ordered show no significant abnormality. Although your examination and all studies that were ordered showed no significant abnormal finding, there are no examinations and no studies that are 100% accurate. There is always the possibility that some abnormality could exist and not be detected with physical examination or within the limits and capabilities of laboratory and other studies. You should return or follow up as you were instructed on your visit today for further evaluation if your symptoms do not resolve. TORADOL INJECTION: You have been given an injection of ketorolac tromethamine (Toradol). This is an excellent, safe drug for pain control. It also has potent antiinflammatory action. You should have significant pain relief within about one hour. Toradol is not addicting and is non-sedating. It does not interfere with driving or work. Call or return if you develop itching, hives, shortness of breath, or rash. PAIN MEDICATION INJECTION: You have received an injection of a pain medication. You should experience significant pain relief within 45 minutes. This drug is a narcotic - - it will impair your judgement, slow your reaction time and make you sleepy ( as well as relieve your pain). Narcotics also can cause nausea. You should not drive, work with machinery, or perform any task requiring mental alertness until all effects of the medication are gone -- six to eight hours. Do not take any alcohol, or sedatives, and do not take any other medication without checking with your physician. ANTINAUSEA MEDICATION: You have been given a medication to suppress nausea and vomiting. This type of medication can be given as a shot, pill, or suppository. It will usually last for many hours. Pills and shots usually last six to eight hours, suppositories last about 12 hours. For the typical illness, only one or two doses of the medication may be necessary. Mild lightheadedness may occur. This type of medicine can cause drowsiness. Do not drive or operate dangerous machinery while under its influence. Do not mix with alcohol. See your doctor at once if you have muscle spasms or tightness, or uncontrollable motions (particularly of the neck, mouth, or jaw). Persistent vomiting or severe lightheadedness should also be evaluated by the physician. ORAL NARCOTIC MEDICATION: You have been given a prescription for pain control. This medication is a narcotic. It's best taken with food, as nausea can result if taken on an empty stomach. Don't operate machinery or drive within six hours of taking this medication. Do not combine this medicine with alcohol, or with any medication which can cause sedation (such as cold tablets or sleeping pills) unless you get permission from the physician. Narcotics tend to cause constipation. If possible, drink plenty of fluids and eat a diet high in fiber and fruits. Please be aware that prescription narcotics also have the potential for abuse. People become addicted to these medications because of the general sense of wellbeing that they induce. This feeling along with a significant reduction in tension, anxiety, and aggression provides a stimulating seductive quality to these drugs. Once your pain is under control, we encourage you to discard your unused narcotics. FOLLOW-UP CARE: If you have been referred to a physician for follow-up care, call the physician s office for an appointment as you were instructed or within the next two days. If you experience worsening or a significant change in your symptoms, notify the physician immediately or return to the Emergency Department at any time for re-evaluation. FOLLOW-UP CARE: You should return for re-evaluation in 12 hours if you are not feeling any better, otherwise please follow up with your primary care provider. I suggest you also get an appointment to see a blunger.. This follow-up visit is important. If you are unable to return, or feel that the return visit is unnecessary, please call us. Referrals: ENRRIQUE ALVARADO FNP [Primary Care Provider] - Follow up as needed
[2018-05-16 20:19] LABS: ABSOLUTE EOSINOPHILS # (AUTO) 0.1 10^3/uL (0.0-0.6); ABSOLUTE LYMPHOCYTES (AUTO) 1.7 10^3/uL (0.5-4.7); ABSOLUTE MONOCYTES (AUTO) 0.6 10^3/uL (0.1-1.4); ABSOLUTE NEUT (AUTO) 5.2 10^3/uL (1.7-8.2); BASOPHILS % (AUTO) 0.6 % (0-2); HEMATOCRIT 40.6 % (36.0-47.0); LYMPHOCYTES % (AUTO) 22.3 % (13-45); MEAN CORPUSCULAR HEMOGLOBIN 30.1 pg (27.0-33.4); MEAN CORPUSCULAR HGB CONC 34.6 g/dL (32.0-36.0); MEAN CORPUSCULAR VOLUME 87 fl (80-97); PLATELET COUNT 330 10^3/uL (150-450); RED BLOOD COUNT 4.66 10^6/uL (3.72-5.28); RED CELL DISTRIBUTION WIDTH 13.3 % (11.5-14.0); SEGMENTED NEUTROPHILS % (AUTO) 68.1 % (42-78); TOTAL CELLS COUNTED % (AUTO) 100 %; WHITE BLOOD COUNT 7.6 10^3/uL (4.0-10.5)
--- NOTE | 2018-05-16 20:21 | ER Document Report ---
ED Medical Screen (RME) - General Mode of Arrival: Ambulatory Information source: Patient TRAVEL OUTSIDE OF THE U.S. IN LAST 30 DAYS: No <TELMA REARDON - Last Filed: 05/16/18 20:34> <AWAIS ROMO - Last Filed: 05/16/18 20:47> - General Chief Complaint: Abdominal Pain Stated Complaint: ABDOMEN PAIN Time Seen by Provider: 05/16/18 19:38 Notes: Patient is a 38 year old female with atopic dermatitis and a history of alcohol syndrome presents to the emergency department complaining of nausea with associated symptoms of abdominal pain, vomiting and diarrhea onset a few days ago. Patient states the pain is exacerbated with eating further stating after eating a small amount of soup today she began to have diffuse abdominal pain. Patient denies vaginal bleeding, burning, fevers, diaphoresis or chills. GENERAL: Alert, interacts well. No acute distress. HEAD: Normocephalic, Atraumatic, consistent with alcohol syndrome. Excoriations around the eyes. NECK: Full range of motion. Supple. Trachea midline. LUNGS: Clear to auscultation bilaterally, no wheezes, rales, or rhonchi. No respiratory distress. HEART: Regular rate and rhythm. No murmurs, gallops, or rubs. ABDOMEN: Soft, LLQ and suprapubic tenderness to palpation. No epigastric tenderness to palpation. Non-distended. Bowel sounds present in all 4 quadrants. EXTREMITIES: Moves all four extremities spontaneously. PSYCH: Normal affect, normal mood. SKIN: No vesicular rashes. Fine diffuse rash, erythematous, slightly raised, non -blanching, almost sandpaper in nature. I have greeted and performed a rapid initial assessment of this patient. A comprehensive ED assessment and evaluation of the patient, analysis of test results and completion of the medical decision making process will be conducted by additional ED providers. (TELMA REARDON) Wincing and clutching left side of abdomen. (AWAIS ROMO) - Related Data Allergies/Adverse Reactions: diphenhydramine [From Benadryl] Allergy (Verified 04/20/18 14:59) erythromycin base Allergy (Verified 04/20/18 14:59) nafcillin Allergy (Verified 04/20/18 14:59) Past Medical History - Social History Chew tobacco use (# tins/day): No Frequency of alcohol use: None Drug Abuse: None Renal/ Medical History: Denies: Hx Peritoneal Dialysis Psychiatric Medical History: Reports: Hx Depression - and ANXIETY Past Surgical History: Reports: Hx Breast Surgery - cyst removal, Hx Section - x2, Hx Tubal Ligation - Immunizations Hx Diphtheria, Pertussis, Tetanus Vaccination: No <TELMA REARDON - Last Filed: 05/16/18 20:34> - Vital signs Vitals: Temp Pulse Resp BP Pulse Ox 97.9 F 94 16 126/75 H 99 05/16/18 19:01 05/16/18 19:01 05/16/18 19:01 05/16/18 19:01 05/16/18 19:01 Course - Laboratory Result Diagrams: 05/16/18 20:01 05/16/18 20:01 <TELMA REARDON - Last Filed: 05/16/18 20:34> - Laboratory Result Diagrams: 05/16/18 20:01 05/16/18 20:01 <AWAIS ROMO - Last Filed: 05/16/18 20:47> - Vital Signs Vital signs: Temp Pulse Resp BP Pulse Ox 97.9 F 94 16 126/75 H 99 05/16/18 19:01 05/16/18 19:01 05/16/18 19:01 05/16/18 19:01 05/16/18 19:01 Doctor's Discharge <TELMA REARDON - Last Filed: 05/16/18 20:34> <AWAIS ROMO - Last Filed: 05/16/18 20:47> - Discharge Referrals: ENRRIQUE ALVARADO FNP [Primary Care Provider] - Follow up as needed
[2018-05-16 20:49] LABS: ALANINE AMINOTRANSFERASE 29 U/L (9-52); ALBUMIN 4.4 g/dL (3.5-5.0); ALKALINE PHOSPHATASE 63 U/L (38-126); ANION GAP 14 (5-19); ASPARTATE AMINO TRANSFERASE 23 U/L (14-36); BILIRUBIN,DIRECT 0.2 mg/dL (0.0-0.4); BILIRUBIN,TOTAL 0.4 mg/dL (0.2-1.3); BLOOD UREA NITROGEN 8 mg/dL (7-20); CALCIUM 9.7 mg/dL (8.4-10.2); CARBON DIOXIDE 26 mmol/L (22-30); CHLORIDE 107 mmol/L (98-107); GLUCOSE 80 mg/dL (75-110); LIPASE 106.7 U/L (23-300); POTASSIUM 3.7 mmol/L (3.6-5.0); SODIUM 146.7 mmol/L (137-145); TOTAL PROTEIN 7.4 g/dL (6.3-8.2)
[2018-05-16] MEDS ORDERED: MORPHINE SULFATE 10 MG/ML INJ IV ONE (20:58)
[2018-05-16] MEDS ORDERED: NORMAL SALINE 1000 ML 1,000 ML IV ONE (20:58)
[2018-05-16] MEDS ORDERED: ONDANSETRON HCL INJ/PF 4 MG/2 ML SDV IV ONE (20:59)
[2018-05-16 21:36] LABS: APPEARANCE,URINE SLIGHTLY-CLOUDY; BILIRUBIN,URINE NEGATIVE (NEGATIVE); COLOR,URINE YELLOW; GLUCOSE, URINE NEGATIVE (NEGATIVE); KETONES,URINE NEGATIVE (NEGATIVE); LEUKOCYTE ESTERASE,URINE NEGATIVE (NEGATIVE); NITRITE,URINE NEGATIVE (NEGATIVE); PROTEIN,URINE 30 mg/dL (NEGATIVE); URINE SPECIFIC GRAVITY 1.024
[2018-05-16] MEDS ORDERED: HYDROCODONE/ACETAMINOPHEN 5-325 MG (6 TAB/ER DISP) PO PRN (23:23)
[2018-05-16] MEDS ORDERED: ONDANSETRON ODT 4 MG TAB (6 TAB/ER DISP) PO PRN (23:23)
[2018-05-16 23:44] VITALS: BP 107/55
== END 2018-05-16 23:42 | disposition home or self-care (01) ==
LOC: ER 18:53
DX: R10.32 Left lower quadrant pain (principal); R11.10 Vomiting, unspecified; Z88.8 Allergy status to other drugs, medicaments and biological substances; Z88.1 Allergy status to other antibiotic agents; Z88.0 Allergy status to penicillin; Z87.19 Personal history of other diseases of the digestive system
CPT/HCPCS: 99284; 96361; 96374; 96375; 36415; 83690; 84703; 85025; 80053; 81001; J1885; J2270; J2405; J7030; A9270 ×2

== ENCOUNTER 2018-06-19 18:27 | Emergency (ER) | payer MEDICARE, MEDICAID ==
[2018-06-19] MEDS ORDERED: OXYCODONE-ACETAMINOPHEN 5-325 MG TABLET PO ONE (19:06)
--- NOTE | 2018-06-19 19:22 | RADIOLOGY REPORT (SQ) ---
EXAM DESCRIPTION: ANKLE RIGHT COMPLETE COMPLETED DATE/TIME: 06/19/2018 7:08 pm REASON FOR STUDY: injury COMPARISON: None. NUMBER OF VIEWS: Three views. TECHNIQUE: AP, lateral, and oblique radiographic images acquired of the right ankle. LIMITATIONS: None. FINDINGS: MINERALIZATION: Normal. BONES: Comminuted oblique fracture of the distal fibula at level of syndesmosis. Mildly displaced fr acture of the medial malleolus. JOINTS: No effusions. SOFT TISSUES: No foreign body. OTHER: No other significant finding. IMPRESSION: Fractures of the medial malleolus and distal fibular diaphysis. TECHNICAL DOCUMENTATION: JOB ID: [id number] [employer]- All Rights Reserved Reading location - IP/workstation name: [email or web address]
--- NOTE | 2018-06-19 19:47 | ER Document Report ---
ED Extremity Problem, Lower - General Chief Complaint: Ankle Injury Stated Complaint: ANKLE PAIN Time Seen by Provider: 06/19/18 19:05 Mode of Arrival: Wheelchair Information source: Patient Notes: 38-year-old female presents to ED for complaint of right ankle pain after she fell while rollerskating. She states that she is not able to place her foot on the floor at all due to the pain. Patient is alert and oriented respirations regular and unlabored speaking in full sentences and is not able to bear any weight on her right leg. Patient is in the room crying due to the pain. TRAVEL OUTSIDE OF THE [place] IN LAST 30 DAYS: No - HPI Patient complains to provider of: Injury, Pain, Swelling Location: Ankle - Right ankle Occurred: Just prior to arrival Where: Public place - Skating Onset/Duration: Sudden, Persistent Quality of pain: Sharp, Throbbing Severity: Severe Pain Level: 5 Context: Fell - Fell while skating Recent injury: Yes Associated symptoms: Unable to bear weight Exacerbated by: Hanging down, Movement Relieved by: Nothing - Related Data Allergies/Adverse Reactions: diphenhydramine [From Benadryl] Allergy (Verified 04/20/18 14:59) erythromycin base Allergy (Verified 04/20/18 14:59) nafcillin Allergy (Verified 04/20/18 14:59) Past Medical History - General Information source: Patient - Social History Smoking Status: Current Every Day Smoker Cigarette use (# per day): Yes - 5 cigarettes a day Chew tobacco use (# tins/day): No Smoking Education Provided: Yes - 4 minutes Frequency of alcohol use: None Drug Abuse: None Occupation: Disabled Lives with: Family Family History: Reviewed & Not Pertinent Patient has suicidal ideation: No Patient has homicidal ideation: No - Past Medical History Cardiac Medical History: Reports: None Pulmonary Medical History: Reports: None EENT Medical History: Reports: None Neurological Medical History: Reports: None Endocrine Medical History: Reports: None Renal/ Medical History: Reports: None Malignancy Medical History: Reports: None GI Medical History: Reports: Hx Irritable Bowel Musculoskeletal Medical History: Reports Hx Arthritis, Reports Hx Musculoskeletal Deformity Skin Medical History: Reports None Psychiatric Medical History: Reports: Hx Depression - and ANXIETY Traumatic Medical History: Reports: None Infectious Medical History: Reports: None Past Surgical History: Reports: Hx Breast Surgery - cyst removal, Hx Section - x2, Hx Tubal Ligation - Immunizations Hx Diphtheria, Pertussis, Tetanus Vaccination: No Review of Systems - Review of Systems Constitutional: No symptoms reported EENT: No symptoms reported Cardiovascular: No symptoms reported Respiratory: No symptoms reported Gastrointestinal: No symptoms reported Genitourinary: No symptoms reported Female Genitourinary: No symptoms reported Musculoskeletal: Other - Pain ecchymosis pain bruising swelling due to fall deformity noted to ankle Skin: No symptoms reported Hematologic/Lymphatic: No symptoms reported Neurological/Psychological: No symptoms reported Physical Exam - Vital signs Vitals: Temp Pulse Resp BP Pulse Ox 98.6 F 98 18 115/74 100 06/19/18 18:43 06/19/18 18:43 06/19/18 18:43 06/19/18 18:43 06/19/18 18:43 Interpretation: Normal - General General appearance: Appears well, Alert - HEENT Head: Normocephalic, Atraumatic Eyes: Normal Pupils: PERRL - Respiratory Respiratory status: No respiratory distress Chest status: Nontender Breath sounds: Normal Chest palpation: Normal - Cardiovascular Rhythm: Regular Heart sounds: Normal auscultation Murmur: No - Abdominal Inspection: Normal Distension: No distension Bowel sounds: Normal Tenderness: Nontender Organomegaly: No organomegaly - Back Back: Normal, Nontender - Extremities General upper extremity: Normal inspection, Nontender, Normal color, Normal ROM , Normal temperature General lower extremity: Normal temperature. No: James's sign Ankle: Tender, Deformity, Ecchymosis, Edema, Limited ROM, Unable to bear weight. No: Abrasion, Instability, Laceration Foot: Tender, Ecchymosis, No evidence of FB, Unable to bear weight - Neurological Neuro grossly intact: Yes Cognition: Normal Orientation: AAOx4 [place] Coma Scale Eye Opening: Spontaneous [place] Coma Scale Verbal: Oriented [place] Coma Scale Motor: Obeys Commands Samuel Coma Scale Total: 15 Speech: Normal Motor strength normal: LUE, RUE, LLE, RLE Sensory: Normal - Psychological Associated symptoms: Normal affect, Normal mood - Skin Skin Temperature: Warm Skin Moisture: Dry Skin Color: Normal Course - Re-evaluation Re-evalutation: 06/19/18 20:48 Discussed x-ray with Dr. Moctezuma. He stated that would be fine to treat fracture with posterior and stirrup splint crutches nonweightbearing and have follow-up with orthopedics as outpatient. Patient was treated with Percocet morphine and Vistaril. Will discharge home with Percocet. Patient developed itching she stated she was not sure if it was from the Percocet and morphine but she has plenty of Vistaril at home for itching and she needs the Percocet. Patient will be discharged home with a small prescription of Percocet and instructions to follow-up with orthopedics nonweightbearing as soon as possible. - Vital Signs Vital signs: Temp Pulse Resp BP Pulse Ox 98.4 F 98 18 122/84 97 06/19/18 21:11 06/19/18 18:43 06/19/18 21:11 06/19/18 21:11 06/19/18 21:11 - Diagnostic Test Radiology reviewed: Image reviewed, Reports reviewed Procedures - Immobilization Right Ankle Time completed: 21:10 Pre-Proc Neuro Vasc Exam: Normal Immobilizer type: Ankle stirrup, Crutches, Posterior ankle Performed by: RN, PCT Post-Proc Neuro Vasc Exam: Normal Alignment checked and good: Yes - displaced fibular fracture to be set by ortho Discharge - Discharge Clinical Impression: Right distal fibula comminuted fracture Fracture of ankle, medial malleolus, right, closed Qualifiers: Encounter type: initial encounter Fracture alignment: displaced Qualified Code( s): S82.51XA - Displaced fracture of medial malleolus of right tibia, initial encounter for closed fracture Condition: Stable Disposition: HOME, SELF-CARE Additional Instructions: Fractured Ankle (Bimalleolar) You have a fracture of both bones of the lower leg at the ankle. If there is dispacement of the bones from their proper alignment, manipulation of the ankle and foot may be necessary to re-align the bones properly. This fracture wll require a cast for healing and some of the more serious fractures of this type will require surgery. If surgery is not required, the bones requires only protection and sufficient time for healing. The initial treatment is immobilization, elevation, and ice packs. Depending on the type of fracture, immobilization may consist of a splint or cast. The length of time required for healing depends on the type of fracture. You will be referred to an orthopedic surgeon who will re-assess you periodically to make certain that the bone heals without complications. It's important that you follow the instructions given you. Splint Pending Casting Your injury can't be casted until the swelling has subsided. Therefore, a temporary splint has been placed to protect the injury. Full use of an injured area is not possible in a splint. You should follow the doctor's instructions concerning rest, ice, and elevation of the injury. Never do anything which causes pain under the splint. Keep the splint on ALL THE TIME until you return for casting. If there is unexpected severe pain, or numbness, discoloration, or swelling beyond the splint, you should return at once. Your splint is to be nonweightbearing that means the foot is not to touch the floor and 2 you have followed up with orthopedics USE OF CRUTCHES: The doctor has recommended that you not bear weight at this time. You will need to use crutches. Adjust the crutches so the tops come to about two inches under the armpit while you are standing upright. Use your hands -- not your armpits -- to support your weight. To get into a chair, support yourself with one crutch on the injured side. Hold the chair with the other hand, then lower yourself while putting all your weight on the good leg. Going up stairs is `good leg up, step up, then bring up crutches and bad leg.' Down stairs is `bad leg and crutches down, then bring good leg down.' If you develop numbness or swelling in an arm or hand, you are using the crutches incorrectly. Return if you are having any problems with the crutches. ICE & ELEVATION: Apply ice packs frequently against the painful area. Many different schedules are recommended, such as "20 minutes on, 20 minutes off" or "one hour ice, two hours rest." If you need to work, you may need to go longer between ice treatments. You should plan to have the area ice packed AT LEAST one- fourth of the time. The ice should be applied over the wrap, tape, or splint, or over a layer of cloth -- not directly against the skin. Some ice bags have a built-in cloth and can be put directly on the skin. Your injured part should be elevated as much as possible over the next 48 hours. Try to keep the injury above the level of the heart. Avoid use of the injured area. Elevation and rest will decrease the swelling. USE OF [id number] IBUPROFEN: Ibuprofen (Advil, Nuprin, Medipren, Motrin IB) is a medication for fever and pain control. In addition, it has anti- inflammatory effects which may be beneficial, especially in the treatment of injuries. It's best to take ibuprofen with food. Persons with ulcer disease or allergy to aspirin should notify their physician of this before taking ibuprofen. Ibuprofen can be given every four to six hours, for a total of four doses daily. Age Pain or fever dose Antiinflammatory dose 6-8 yr 200 mg (1 tab) 200 mg (1 tab) 9-11 yr 200 mg (1 tab) 200-400 mg (1-2 tab) 11-14 yr 200-400 mg (1-2 tab) 400 mg (2 tab) 15-adult 400 mg (2 tab) 600 mg (3 tab) ORAL NARCOTIC MEDICATION: You have been given a prescription for pain control. This medication is a narcotic. It's best taken with food, as nausea can result if taken on an empty stomach. Don't operate machinery or drive within six hours of taking this medication. Do not combine this medicine with alcohol, or with any medication which can cause sedation (such as cold tablets or sleeping pills) unless you get permission from the physician. Narcotics tend to cause constipation. If possible, drink plenty of fluids and eat a diet high in fiber and fruits. Please be aware that prescription narcotics also have the potential for abuse. People become addicted to these medications because of the general sense of wellbeing that they induce. This feeling along with a significant reduction in tension, anxiety, and aggression provides a stimulating seductive quality to these drugs. Once your pain is under control, we encourage you to discard your unused narcotics. FOLLOW-UP CARE: If you have been referred to a physician for follow-up care, call the physician s office for an appointment as you were instructed or within the next two days. If you experience worsening or a significant change in your symptoms, notify the physician immediately or return to the Emergency Department at any time for re-evaluation. Prescriptions: Oxycodone HCl/Acetaminophen [Percocet 5-325 mg Tablet] 1 tab PO Q6HP PRN #15 tablet PRN Reason: Forms: Smoking Cessation Education Referrals: SAAD MOCTEZUMA MD [ACTIVE STAFF] - Follow up as needed
[2018-06-19] MEDS ORDERED: MORPHINE SULFATE 10 MG/ML INJ IM ONE (19:48)
[2018-06-19] MEDS ORDERED: HYDROXYZINE PAMOATE 25 MG CAPSULE PO ONE (20:39)
[2018-06-19 21:18] VITALS: BP 122/84
== END 2018-06-19 21:11 | disposition home or self-care (01) ==
LOC: ER 18:27
DX: S82.51XA Displaced fracture of medial malleolus of right tibia, initial encounter for closed fracture (principal); S82.831A Other fracture of upper and lower end of right fibula, initial encounter for closed fracture; V00.121A Fall from non-in-line roller-skates, initial encounter; Y93.51 Activity, roller skating (inline) and skateboarding; Z88.0 Allergy status to penicillin; F17.210 Nicotine dependence, cigarettes, uncomplicated; Z71.6 Tobacco abuse counseling; Z88.8 Allergy status to other drugs, medicaments and biological substances; Z88.1 Allergy status to other antibiotic agents; L29.9 Pruritus, unspecified
CPT/HCPCS: 99406; 99284; 96372; 73610; 29515; A9270 ×2; J2270

== ENCOUNTER 2018-07-12 04:56 | Emergency (ER) | payer MEDICARE, MEDICAID ==
[2018-07-12 05:04] VITALS: BP 130/79
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
== END 2018-07-12 09:44 | disposition home or self-care (01) ==
LOC: ER 04:56
DX: G89.18 Other acute postprocedural pain (principal); M25.571 Pain in right ankle and joints of right foot; R20.0 Anesthesia of skin; R20.2 Paresthesia of skin; S82.841D Displaced bimalleolar fracture of right lower leg, subsequent encounter for closed fracture with routine healing; X58.XXXD Exposure to other specified factors, subsequent encounter; F17.210 Nicotine dependence, cigarettes, uncomplicated; Z88.8 Allergy status to other drugs, medicaments and biological substances; Z88.1 Allergy status to other antibiotic agents; Z88.0 Allergy status to penicillin
CPT/HCPCS: 99283

== ENCOUNTER 2018-09-16 22:15 | Emergency (ER) | payer MEDICARE, MEDICAID ==
[2018-09-16 22:22] VITALS: BP 142/90
== END 2018-09-16 22:51 | disposition left against medical advice (07) ==
LOC: ER 22:15
DX: Z53.21 Procedure and treatment not carried out due to patient leaving prior to being seen by health care provider (principal)

== ENCOUNTER 2018-10-13 07:07 | Emergency (ER) | payer MEDICARE, MEDICAID ==
[2018-10-13] MEDS ORDERED: MORPHINE SULFATE 10 MG/ML INJ IV ONE (07:58)
[2018-10-13] MEDS ORDERED: NORMAL SALINE 1000 ML 1,000 ML IV ONE (08:04)
--- NOTE | 2018-10-13 08:04 | ER Document Report ---
ED GI/ - General Chief Complaint: Abdominal Pain Stated Complaint: ABDOMINAL/PELVIC PAIN Time Seen by Provider: 10/13/18 07:43 Mode of Arrival: Ambulatory Information source: Patient Notes: Patient is a 38-year-old female who presents to the emergency department chief complaint of low abdominal pain and cramping. Patient reports symptoms started yesterday and worsened patient denies any fever, nausea, vomiting or diarrhea. Reports normal bowel movement yesterday. She does report cloudy and foul- smelling urine over the last few days. Denies any dysuria or frequency. Patient reports last menstrual period was 10/05/18 and was regular. Patient denies any abnormal discharge or vaginal bleeding. Patient states she has had a , surgery for urethral reflux, and a tubal ligation and ovarian cyst in the past. TRAVEL OUTSIDE OF THE [place] 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 denies: Chills, Fever EENT: No symptoms reported Cardiovascular: No symptoms reported Respiratory: No symptoms reported Gastrointestinal: Abdominal pain. denies: Diarrhea, Nausea, Vomiting, Constipa tion Genitourinary: Other - Cloudy, foul-smelling Female Genitourinary: No symptoms reported Musculoskeletal: No symptoms reported Skin: No symptoms reported Hematologic/Lymphatic: No symptoms reported Neurological/Psychological: No symptoms reported Physical Exam - Vital signs Vitals: Temp Pulse Resp BP Pulse Ox 97.4 F 86 15 118/84 100 10/13/18 07:18 10/13/18 07:18 10/13/18 07:18 10/13/18 07:18 10/13/18 07:18 - Notes Notes: PHYSICAL EXAMINATION: GENERAL: Well-appearing, well-nourished and in no acute distress. HEAD: Atraumatic, normocephalic. EYES: Pupils equal round and reactive to light, extraocular movements intact, conjunctiva are normal. ENT: Nares patent, oropharynx clear without exudates. Moist mucous membranes. NECK: Normal range of motion, supple without lymphadenopathy LUNGS: Breath sounds clear to auscultation bilaterally and equal. No wheezes rales or rhonchi. HEART: Regular rate and rhythm without murmurs ABDOMEN: Soft, nondistended abdomen. Tenderness to palpation to low abdomen on right and left sides. No guarding, no rebound. No masses appreciated. Female : Bilateral CVA tenderness. Musculoskeletal: Normal range of motion, no pitting or edema. No cyanosis. NEUROLOGICAL: Cranial nerves grossly intact. Normal speech, normal gait. Normal sensory, motor exams PSYCH: Normal mood, normal affect. SKIN: Warm, Dry, normal turgor, no rashes or lesions noted. Course - Re-evaluation Re-evalutation: 10/13/18 09:13 CBC, CMP and urinalysis are unremarkable. Patient reports the morphine did not help her pain. She now states the pain is more localized to the right lower quadrant. Will order patient 0.5 mg of Dilaudid IV and will send patient for a transvaginal ultrasound. 10/13/18 11:26 Ultrasound reveals a 3 cm cyst on the left ovary, no explanation for right lower quadrant pain. Went and reevaluated the patient, patient reports that the Dilaudid only took the edge off of her pain, states that she still has pain 3/5. Patient now reporting that she does have issues with constipation sometimes. Patient reports last BM was 2 days ago. I will order a KUB to ensure that this right lower quadrant pain is not being caused by constipation. 10/13/18 12:19 KUB reveals no acute findings. This was discussed with the patient at length and we will proceed with CT abdomen pelvis with IV and oral contrast. 10/13/18 13:30 While patient was drinking her oral contrast the nursing staff came to me and told me that the patient is leaving AGAINST MEDICAL ADVICE. I did go to the bedside before the patient left and the patient indicated to me that there was nothing we did wrong however she has some family stuff going on and just does not want to stay for the CT scan. I did explain to the patient that we cannot exclude appendicitis from a possible diagnosis without proceeding with the CT scan. Patient with at bedside verbalized understanding and still wishes to leave. She signed AMA forms. - Vital Signs Vital signs: Temp Pulse Resp BP Pulse Ox 97.4 F 71 16 111/74 99 10/13/18 07:18 10/13/18 13:37 10/13/18 13:37 10/13/18 13:37 10/13/18 13:37 - Laboratory Result Diagrams: 10/13/18 08:06 10/13/18 08:06 Laboratory results interpreted by me: 10/13/18 10/13/18 08:06 08:06 Potassium 3.4 L Urine Protein 30 H Urine Blood SMALL H Discharge - Discharge Clinical Impression: Abdominal pain Qualifiers: Abdominal location: right lower quadrant Qualified Code(s): R10.31 - Right lower quadrant pain Condition: Stable Disposition: AGAINST MEDICAL ADVICE Referrals: ENRRIQUE ALVARADO FNP [Primary Care Provider] - Follow up as needed
[2018-10-13 08:30] LABS: ABSOLUTE BASOPHILS # (AUTO) 0.1 10^3/uL (0.0-0.2); ABSOLUTE EOSINOPHILS # (AUTO) 0.1 10^3/uL (0.0-0.6); ABSOLUTE LYMPHOCYTES (AUTO) 2.1 10^3/uL (0.5-4.7); ABSOLUTE MONOCYTES (AUTO) 0.8 10^3/uL (0.1-1.4); BASOPHILS % (AUTO) 0.7 % (0-2); EOSINOPHILS % (AUTO) 0.6 % (0-6); HEMATOCRIT 41.5 % (36.0-47.0); HEMOGLOBIN 14.1 g/dL (12.0-15.5); LYMPHOCYTES % (AUTO) 23.4 % (13-45); MEAN CORPUSCULAR HEMOGLOBIN 29.9 pg (27.0-33.4); MEAN CORPUSCULAR HGB CONC 33.9 g/dL (32.0-36.0); MEAN CORPUSCULAR VOLUME 88 fl (80-97); MONOCYTES % (AUTO) 8.5 % (3-13); PLATELET COUNT 347 10^3/uL (150-450); RED CELL DISTRIBUTION WIDTH 12.9 % (11.5-14.0); SEGMENTED NEUTROPHILS % (AUTO) 66.8 % (42-78); TOTAL CELLS COUNTED % (AUTO) 100 %; WHITE BLOOD COUNT 9.1 10^3/uL (4.0-10.5)
[2018-10-13 08:39] LABS: APPEARANCE,URINE SLIGHTLY-CLOUDY; BILIRUBIN,URINE NEGATIVE (NEGATIVE); COLOR,URINE YELLOW; GLUCOSE, URINE NEGATIVE (NEGATIVE); KETONES,URINE NEGATIVE (NEGATIVE); LEUKOCYTE ESTERASE,URINE NEGATIVE (NEGATIVE); NITRITE,URINE NEGATIVE (NEGATIVE); PROTEIN,URINE 30 mg/dL (NEGATIVE); URINE SPECIFIC GRAVITY 1.017; UROBILINOGEN,URINE NEGATIVE mg/dL (<2.0)
[2018-10-13 08:52] LABS: ALANINE AMINOTRANSFERASE 29 U/L (9-52); ALBUMIN 4.7 g/dL (3.5-5.0); ALKALINE PHOSPHATASE 88 U/L (38-126); ANION GAP 11 (5-19); ASPARTATE AMINO TRANSFERASE 29 U/L (14-36); BILIRUBIN,DIRECT 0.2 mg/dL (0.0-0.4); BILIRUBIN,TOTAL 0.5 mg/dL (0.2-1.3); BLOOD UREA NITROGEN 9 mg/dL (7-20); CALCIUM 10.2 mg/dL (8.4-10.2); CARBON DIOXIDE 27 mmol/L (22-30); CHLORIDE 104 mmol/L (98-107); GLUCOSE 80 mg/dL (75-110); POTASSIUM 3.4 mmol/L (3.6-5.0); SODIUM 141.7 mmol/L (137-145); TOTAL PROTEIN 7.9 g/dL (6.3-8.2)
[2018-10-13] MEDS ORDERED: HYDROMORPHONE HCL INJ/PF 2 MG/ML AMPULE IV ONE (09:11)
--- NOTE | 2018-10-13 11:24 | RADIOLOGY REPORT (SQ) ---
EXAM DESCRIPTION: U/S NON OB PEL TV W/DOPPLER COMPLETED DATE/TIME: 10/13/2018 11:13 am REASON FOR STUDY: low abd pain/RLQ pain, eval ovaries COMPARISON: None. TECHNIQUE: Dynamic and static grayscale images acquired of the pelvis via transvaginal approach and recorded on PACS. Additional selected color Doppler and spectral images recorded. LIMITATIONS: None. FINDINGS: UTERUS: Contour normal. No mass. ENDOMETRIAL STRIPE: No focal or generalized thickening. No masses. CERVIX: No nabothian cysts. RIGHT OVARY AND DOPPLER: Normal size. No worrisome masses. Normal arterial vascular flow without evid ence for torsion. LEFT OVARY AND DOPPLER: Normal size. 2.8 cm simple appearing cyst. No worrisome masses. Normal leandro rial vascular flow without evidence for torsion. FREE FLUID: None noted. OTHER: No other significant finding. MEASUREMENTS: UTERUS: 8.3 x 4.5 x 3.3 cm ENDOMETRIAL STRIPE: 10 mm RIGHT OVARY: 2.5 x 1.5 x 1.6 cm LEFT OVARY: 3.5 x 4.2 x 2.7 cm IMPRESSION: 3 cm cyst left ovary. No explanation for right lower quadrant pain. TECHNICAL DOCUMENTATION: JOB ID: [id number] [employer]- All Rights Reserved Reading location - IP/workstation name: [facility]
--- NOTE | 2018-10-13 12:06 | RADIOLOGY REPORT (SQ) ---
EXAM DESCRIPTION: KUB/ABDOMEN (SINGLE VIEW) COMPLETED DATE/TIME: 10/13/2018 11:50 am REASON FOR STUDY: RLQ pain eval for constipation COMPARISON: None. NUMBER OF VIEWS: One view. TECHNIQUE: Supine radiographic image of the abdomen acquired. LIMITATIONS: None. FINDINGS: BOWEL GAS PATTERN: Moderate stool in the ascending, transverse and descending colon. Mild gaseous distension otherwise, nonobstructive pattern. CALCIFICATIONS: No suspicious calcifications. SOFT TISSUES: No gross mass or suggestion of organomegaly. HARDWARE: None in the abdomen. BONES: No acute fracture. No worrisome bone lesions. OTHER: No other significant finding. IMPRESSION: No acute findings. Moderate stool. TECHNICAL DOCUMENTATION: JOB ID: [id number] [employer]- All Rights Reserved Reading location - IP/workstation name: [email or web address]
[2018-10-13 13:38] VITALS: BP 111/74
== END 2018-10-13 13:38 | disposition left against medical advice (07) ==
LOC: ER 07:07
DX: R10.31 Right lower quadrant pain (principal); F17.200 Nicotine dependence, unspecified, uncomplicated
CPT/HCPCS: 99284; 96361; 96374; 96375; 36415; 83690; 85025; 80053; 81001; 74018; 76830; 93976; J2270; J1170; J7030

== ENCOUNTER → 2018-12-14 | Outpatient (CLI) | payer MEDICARE, MEDICAID ==
[2018-12-14 12:36] LABS: ABSOLUTE BASOPHILS # (AUTO) 0.1 10^3/uL (0.0-0.2); ABSOLUTE EOSINOPHILS # (AUTO) 0.1 10^3/uL (0.0-0.6); ABSOLUTE LYMPHOCYTES (AUTO) 1.5 10^3/uL (0.5-4.7); ABSOLUTE MONOCYTES (AUTO) 0.5 10^3/uL (0.1-1.4); ABSOLUTE NEUT (AUTO) 4.9 10^3/uL (1.7-8.2); EOSINOPHILS % (AUTO) 0.8 % (0-6); HEMATOCRIT 41.4 % (36.0-47.0); HEMOGLOBIN 14.3 g/dL (12.0-15.5); LYMPHOCYTES % (AUTO) 20.8 % (13-45); MEAN CORPUSCULAR HEMOGLOBIN 29.9 pg (27.0-33.4); MEAN CORPUSCULAR HGB CONC 34.7 g/dL (32.0-36.0); MEAN CORPUSCULAR VOLUME 86 fl (80-97); MONOCYTES % (AUTO) 7.8 % (3-13); PLATELET COUNT 291 10^3/uL (150-450); RED BLOOD COUNT 4.79 10^6/uL (3.72-5.28); RED CELL DISTRIBUTION WIDTH 12.8 % (11.5-14.0); SEGMENTED NEUTROPHILS % (AUTO) 69.6 % (42-78); TOTAL CELLS COUNTED % (AUTO) 100 %
[2018-12-14 13:04] LABS: ANION GAP 8 (5-19); BLOOD UREA NITROGEN 14 mg/dL (7-20); CALCIUM 9.8 mg/dL (8.4-10.2); CARBON DIOXIDE 27 mmol/L (22-30); CHLORIDE 106 mmol/L (98-107); GLUCOSE 99 mg/dL (75-110); POTASSIUM 3.9 mmol/L (3.6-5.0); SODIUM 141.3 mmol/L (137-145)
[2018-12-14 13:07] LABS: C-REACTIVE PROTEIN < 5.0 mg/L (<10.0)
[2018-12-14 13:17] LABS: ERYTHROCYTE SEDIMENTATION RATE 9 mm/hr (0-20)
--- NOTE | 2018-12-14 14:07 | RADIOLOGY REPORT (SQ) ---
EXAM DESCRIPTION: CT RT LOWER EXTREMITY WITHOUT COMPLETED DATE/TIME: 12/14/2018 12:43 pm REASON FOR STUDY: UNSPEC FX OF RT LOWER LEG, INITIAL ENCTR FOR OPEN FX TYPE 1/2 (S82.91XB) S82.91XB UNSP FRACTURE OF RIGHT LOWER LEG, INIT FOR OPN FX T UNSPEC FX OF RT LOWER LEG, INITIAL ENCTR FOR OPEN FX TYPE 1/2 (S82.91XB) S82.91XB UNSP FRACTURE OF R IGHT LOWER LEG, INIT FOR OPN FX T draining wound. COMPARISON: None. TECHNIQUE: Axial imaging performed through the right ankle and foot with reformatted coronal and sag ittal imaging windowed for bone and soft tissues. Images saved to PACS. 3D IMAGING: Were 3D images as MIP, SSD, or volume rendering performed at the work station? Yes All CT scanners at this facility use dose modulation, iterative reconstruction, and/or weight based d osing when appropriate to reduce radiation dose to as low as reasonably achievable (ALARA). [facility]: Dose Right [facility]: CareDose [facility]: Dose Right [facility]: Teradose 4D [facility]: [employer] LIMITATIONS: None. RADIATION DOSE: CT Rad equipment meets quality standard of care and radiation dose reduction techniq ues were employed. CTDIvol: 4.6 mGy. DLP: 152 mGy-cm. mGy. FINDINGS: SOFT TISSUES: There appears to be mild soft tissue swelling around the ankle. BONES: No acute fracture. The fibular fracture line is still seen. There does appear to be some mar ginal bridging callus. No bone destruction is seen. There are 2 screws in the medial malleolus. Th ere is a long compression plate on the distal fibula. A screw has been removed that passed from the distal fibula into the tibia. MINERALIZATION: Normal. OTHER: No other significant finding. IMPRESSION: Prior ORIF. Soft tissue swelling. No evidence of osteomyelitis. TECHNICAL DOCUMENTATION: JOB ID: [id number] Quality ID # [id number]: Final reports with documentation of one or more dose reduction techniques (e.g., Au tomated exposure control, adjustment of the mA and/or kV according to patient size, use of iterative reconstruction technique) 2010 [employer]- All Rights Reserved Reading location - IP/workstation name: [email or web address]
== END ==
LOC: RAD 12:17
PROVIDERS: ATTEND Orthopaedic Surgery
DX: S82.91XB Unspecified fracture of right lower leg, initial encounter for open fracture type I or II (principal); X58.XXXA Exposure to other specified factors, initial encounter
CPT/HCPCS: 36415; 80048; 85025; 85652; 86140

== ENCOUNTER 2018-12-17 21:10 | Emergency (ER) | payer MEDICARE, MEDICAID ==
--- NOTE | 2018-12-18 00:17 | RADIOLOGY REPORT (SQ) ---
EXAM DESCRIPTION: XR ANKLE 3 OR MORE VIEWS COMPLETED DATE/TME: 12/17/2018 23:22 CLINICAL HISTORY: 38 years, Female, post-op pain COMPARISON: 06/19/2018 right ankle NUMBER OF VIEWS: 3 TECHNIQUE: 3 view right ankle LIMITATIONS: None. FINDINGS: Postsurgical changes of the distal tibia and fibula with fixation plate and screws in place. Diffuse soft tissue swelling. However negative for acute fracture or dislocation. The ankle mortise is intact. Lucency associated with the distal fibula/lateral malleolus near the fixation plate is noted. This is nonspecific IMPRESSION: Postsurgical changes. Negative for acute fracture or dislocation. Diffuse soft tissue swelling. Questionable loosening adjacent to the distal aspect of the fixation plate of the distal fibula copyright 2010 [employer]- All Rights Reserved
[2018-12-18] MEDS ORDERED: ACETAMINOPHEN 325 MG TABLET PO ONE (00:35)
[2018-12-18] MEDS ORDERED: CLINDAMYCIN HCL 150 MG CAPSULE PO ONE (00:35)
[2018-12-18] MEDS ORDERED: IBUPROFEN 600 MG TABLET PO ONE (00:35)
[2018-12-18] MEDS ORDERED: MORPHINE SULFATE IR 15 MG TABLET PO ONE (00:35)
[2018-12-18] MEDS ORDERED: HYDROCODONE/ACETAMINOPHEN 5-325 MG TABLET PO ONE (00:36)
--- NOTE | 2018-12-18 00:38 | ER Document Report ---
ED General - General Chief Complaint: Ankle Pain Stated Complaint: RIGHT ANKLE PAIN Time Seen by Provider: 12/17/18 23:22 Primary Care Provider: SAAD MOCTEZUMA MD [Primary Care Provider] - 12/20/18 Notes: Patient is a 38-year-old female with a prior surgical repair of a left ankle fracture, following with Dr. Moctezuma for ongoing complications from the surgery who presents with worsening of pain over the left ankle particularly with medial malleolus. Patient states approximately 3-4 hours prior to arrival she developed a relatively abrupt onset of severe stabbing, aching, constant pain to the area. Walking or rotating the ankle worsens the pain. Nothing improves the pain. She states that she has been having continuous pain there but is now much worse. Denies increased swelling, discoloration or increased drainage from the area although notes that she has been diagnosed as having a "tunneling infection" over the area and has been prescribed cephalexin for treatment. Denies any other acute concerns. TRAVEL OUTSIDE OF THE [place] IN LAST 30 DAYS: No - Related Data Allergies/Adverse Reactions: diphenhydramine [From Benadryl] Allergy (Verified 10/13/18 07:14) erythromycin base Allergy (Verified 10/13/18 07:14) nafcillin Allergy (Verified 10/13/18 07:14) Past Medical History - General Information source: Patient - Social History Smoking Status: Current Every Day Smoker Frequency of alcohol use: None Drug Abuse: None Lives with: Spouse/Significant other Family History: Reviewed & Not Pertinent Renal/ Medical History: Denies: Hx Peritoneal Dialysis GI Medical History: Reports: Hx Irritable Bowel Musculoskeletal Medical History: Reports Hx Arthritis, Reports Hx Musculoskeletal Deformity Psychiatric Medical History: Reports: Hx Anxiety, Hx Depression Past Surgical History: Reports: Hx Breast Surgery - cyst removal, Hx Section - x2, Hx Tubal Ligation, Hx Urinary Tract Surgery - Urethral reflux surgery as a child., Other - Right ORIF of bimalleolar fracture - Immunizations Hx Diphtheria, Pertussis, Tetanus Vaccination: No Review of Systems - Review of Systems Notes: Constitutional: Negative for fever. HENT: Negative for sore throat. Eyes: Negative for visual changes. Cardiovascular: Negative for chest pain. Respiratory: Negative for shortness of breath. Gastrointestinal: Negative for abdominal pain, vomiting or diarrhea. Genitourinary: Negative for dysuria. Musculoskeletal: Positive for left ankle pain Skin: Negative for rash. Neurological: Negative for headaches, weakness or numbness. 10 point ROS negative except as marked above and in HPI. Physical Exam - Vital signs Vitals: Temp Pulse Resp BP Pulse Ox 98.0 F 103 H 21 H 120/63 100 12/17/18 21:32 12/17/18 21:32 12/17/18 21:32 12/17/18 21:32 12/17/18 21:32 Interpretation: Tachycardic Notes: PHYSICAL EXAMINATION: GENERAL: Well-appearing, well-nourished and in no acute distress. HEAD: Atraumatic, normocephalic. EYES: sclera anicteric, conjunctiva are normal. ENT: Moist mucous membranes. NECK: Normal range of motion LUNGS: Normal work of breathing HEART: 2+ DP pulses bilaterally EXTREMITIES: Mild swelling over the medial malleolus of the left ankle. Small punctate lesion over the medial malleolus without any drainage. Exquisite pain on palpation the area. No additional shotty findings. NEUROLOGICAL: No focal neurological deficits. Moves all extremities spontaneously and on command. PSYCH: Normal mood, normal affect. SKIN: Warm, Dry, normal turgor, no rashes or lesions noted. Course - Re-evaluation Re-evalutation: 12/18/18 00:36 Patient presents with pain to the right medial malleolus after having surgery in June 2018. Patient has been on multiple course of antibiotics due to concern of infected hardware, following with Dr. Moctezuma regarding this issue. X-ray shows possible loosening of hardware over the area that the patient is complaining of pain. She is otherwise neurovascular intact. There is some scant purulent drainage from a small punctate lesion at the level of the medial malleolus. Patient will be started on clindamycin for coverage of strep and staph and given a small course of discharge home pain medications until she can follow-up Dr. Moctezuma on Thursday. No indication for labs or additional imaging at this point. Not consistent with septic joint. No acute fractures or dislocations. - Vital Signs Vital signs: Temp Pulse Resp BP Pulse Ox 98.4 F 93 20 128/70 H 100 12/18/18 01:14 12/18/18 01:14 12/18/18 01:14 12/18/18 01:14 12/18/18 01:14 - Diagnostic Test Radiology reviewed: Reports reviewed Discharge - Discharge Clinical Impression: Postoperative pain of extremity Right ankle pain Qualifiers: Chronicity: acute Qualified Code(s): M25.571 - Pain in right ankle and joints of right foot Condition: Good Disposition: HOME, SELF-CARE Additional Instructions: For your pain: Take ibuprofen 600 mg and acetaminophen 650 mg every 6 hours together as needed for pain. If this does not control your pain you may take 1 of the oral [place] tablets with which you have been sent home every 4 hours as needed. Please take the antibiotics as prescribed. Return for worsening pain, fever, increasing swelling, or any other symptoms that are worrisome to you. Referrals: SAAD MOCTEZUMA MD [Primary Care Provider] - 12/20/18
[2018-12-18 01:15] VITALS: BP 128/70
[2018-12-18] MEDS ORDERED: HYDROCODONE/ACETAMINOPHEN 5-325 MG (6 TAB/ER DISP) PO PRN (01:35)
== END 2018-12-18 01:39 | disposition home or self-care (01) ==
LOC: ER 21:10
DX: G89.18 Other acute postprocedural pain (principal); M25.571 Pain in right ankle and joints of right foot; Z98.890 Other specified postprocedural states; F17.200 Nicotine dependence, unspecified, uncomplicated
CPT/HCPCS: 99283; 73610; A9270 ×6

== ENCOUNTER 2018-12-18 21:41 | Emergency (ER) | payer MEDICARE, MEDICAID ==
[2018-12-18] MEDS ORDERED: CEFTRIAXONE 1 GM/D5W RTU 1 GM/50 ML RTUPB IV ONE (22:35)
[2018-12-18] MEDS ORDERED: VANCOMYCIN HCL INJ 1000 MG VIAL IV ONE (22:35)
--- NOTE | 2018-12-18 22:40 | ER Document Report ---
ED General - General Chief Complaint: Ankle Pain Stated Complaint: RIGHT ANKLE PAIN Time Seen by Provider: 12/18/18 22:26 Primary Care Provider: SAAD MOCTEZUMA MD [Primary Care Provider] - 12/20/18 Notes: Patient is a 38-year-old female presents with complaint of redness and swelling to the right ankle. She has had multiple surgeries on this ankle including a surgery in the last month to have the screw removed from the ankle itself. She is followed by local orthopedist, Dr. Moctezuma. This patient will be increasing drainage and was seen in the ER was placed on clindamycin. So the last 24 hours she still developed spreading redness and swelling and therefore is return to the ER. Patient says she is allergic to nafcillin but is now allergic to other penicillins. She has an appointment with Dr. Moctezuma on Thursday. She recently had a CT scan and blood work performed this past week. TRAVEL OUTSIDE OF THE [place] IN LAST 30 DAYS: No - Related Data Allergies/Adverse Reactions: diphenhydramine [From Benadryl] Allergy (Verified 12/18/18 21:43) erythromycin base Allergy (Verified 12/18/18 21:43) nafcillin Allergy (Verified 12/18/18 21:43) nickel Allergy (Verified 12/18/18 22:47) Past Medical History - Social History Smoking Status: Unknown if Ever Smoked Frequency of alcohol use: None Drug Abuse: None Family History: Reviewed & Not Pertinent Renal/ Medical History: Denies: Hx Peritoneal Dialysis GI Medical History: Reports: Hx Irritable Bowel Musculoskeletal Medical History: Reports Hx Arthritis, Reports Hx Musculoskeletal Deformity Psychiatric Medical History: Reports: Hx Anxiety, Hx Depression Past Surgical History: Reports: Hx Breast Surgery - cyst removal, Hx Section - x2, Hx Tubal Ligation, Hx Urinary Tract Surgery - Urethral reflux surgery as a child., Other - Right ORIF of bimalleolar fracture - Immunizations Hx Diphtheria, Pertussis, Tetanus Vaccination: No Review of Systems - Review of Systems Notes: My Normal Review Basic REVIEW OF SYSTEMS: CONSTITUTIONAL : Denies fever, chills, or sweats. Denies recent illness. RESPIRATORY: Denies cough, cold, or chest congestion. Denies shortness of breath, difficulty breathing, or wheezing. GASTROINTESTINAL: Denies abdominal pain. Denies nausea, vomiting, or diarrhea. MUSCULOSKELETAL: Redness and swelling to right ankle. SKIN: Denies rash or skin lesions. NEUROLOGICAL: Denies altered mental status or loss of consciousness. Denies headache. Denies weakness or paralysis or loss of use of either side. Denies problems with gait or speech. Denies sensory or motor loss. ALL OTHER SYSTEMS REVIEWED AND NEGATIVE. Physical Exam - Vital signs Vitals: Temp Pulse Resp BP Pulse Ox 99.1 F 89 17 135/64 H 100 12/18/18 21:46 12/18/18 21:46 12/18/18 21:46 12/18/18 21:46 12/18/18 21:46 - Notes Notes: General Appearance: Well nourished, alert, cooperative, no acute distress, no obvious discomfort. Vitals: reviewed, See vital signs table. Extremities: strength 5/5 in all extremities, good pulses in all extremities, patient's right ankle has redness from approximately the proximal foot to midway up the rausch. There is some swelling over the surgical scar over the medial aspect of the ankle. No drainage at this time. No crepitance to palpation. Good capillary refill distally. Skin: warm, dry, appropriate color, no rash Neuro: speech clear, oriented x 3, normal affect, responds appropriately to questions. Good distal sensation. Course - Re-evaluation Re-evalutation: 12/19/18 06:29 Patient does have some redness around the ankle consistent with developing infe ction and cellulitis. I do not feel any fluctuance consistent with abscess. I did pepper the outside the redness. Patient received Vanco and Rocephin. She had actually has this moment of resection of the redness and appears to be improving some. She has no leukocytosis or fever. I spoke with Dr. Moctezuma says to have the patient call the office first thing Thursday morning he will see her Thursday in office. Explained plan with the patient she is agreeable to it. I strongly encouraged her return to ER immediately if she has any spreading redness beyond the demarcated line, any fevers, or if she feels that she is worsening in any way. I will switch the patient's antibiotic to doxycycline as it has less resistance in this area towards MRSA as opposed to clindamycin. Dictation of this chart was performed using voice recognition software; therefore, there may be some unintended grammatical errors. - Vital Signs Vital signs: Temp Pulse Resp BP Pulse Ox 98.4 F 89 16 114/69 99 12/19/18 01:18 12/19/18 01:18 12/19/18 01:18 12/19/18 01:18 12/19/18 01:18 - Laboratory Result Diagrams: 12/18/18 22:50 12/18/18 22:50 Discharge - Discharge Clinical Impression: Cellulitis Qualifiers: Site of cellulitis: extremity Site of cellulitis of extremity: lower extremity Laterality: right Qualified Code(s): L03.115 - Cellulitis of right lower limb Condition: Good Disposition: HOME, SELF-CARE Additional Instructions: Please stop taking the clindamycin. Please start taking doxycycline. Please be aware that [facility] does have Tylenol (acetaminophen) in it. Please make sure you do not take more than 4000 mg of acetaminophen a day. Do not drive or care for children after you have taken this medication they will make you sleepy and sometimes impair judgment. Please call Dr. Moctezuma's office Thursday morning at 8 AM. They will give you a follow-up appointment early Thursday to go see him. Please inform the office that you were seen in the ER and Dr. Moctezuma wants to see your early on Thursday so that they do give you the appropriate appointment. Return to the ER immediately if you develop fevers or redness spreading outside the demarcated line. Prescriptions: RX: Doxycycline Hyclate 100 mg PO BID #14 capsule Referrals: SAAD MOCTEZUMA MD [Primary Care Provider] - 12/20/18
[2018-12-18] MEDS ORDERED: CEFTRIAXONE INJ 1000 MG VIAL ONE (22:50)
[2018-12-18 23:00] LABS: ABSOLUTE EOSINOPHILS # (AUTO) 0.1 10^3/uL (0.0-0.6); ABSOLUTE LYMPHOCYTES (AUTO) 1.5 10^3/uL (0.5-4.7); ABSOLUTE MONOCYTES (AUTO) 1.1 10^3/uL (0.1-1.4); BASOPHILS % (AUTO) 0.5 % (0-2); HEMATOCRIT 37.6 % (36.0-47.0); HEMOGLOBIN 13.1 g/dL (12.0-15.5); LYMPHOCYTES % (AUTO) 15.7 % (13-45); MEAN CORPUSCULAR HEMOGLOBIN 30.5 pg (27.0-33.4); MEAN CORPUSCULAR HGB CONC 34.9 g/dL (32.0-36.0); MEAN CORPUSCULAR VOLUME 87 fl (80-97); PLATELET COUNT 323 10^3/uL (150-450); RED CELL DISTRIBUTION WIDTH 12.9 % (11.5-14.0); SEGMENTED NEUTROPHILS % (AUTO) 71.8 % (42-78); TOTAL CELLS COUNTED % (AUTO) 100 %; WHITE BLOOD COUNT 9.8 10^3/uL (4.0-10.5)
[2018-12-18 23:12] LABS: ANION GAP 9 (5-19); BLOOD UREA NITROGEN 10 mg/dL (7-20); CALCIUM 9.8 mg/dL (8.4-10.2); CARBON DIOXIDE 27 mmol/L (22-30); CHLORIDE 102 mmol/L (98-107); GLUCOSE 81 mg/dL (75-110); POTASSIUM 3.9 mmol/L (3.6-5.0); SODIUM 138.3 mmol/L (137-145)
[2018-12-19] MEDS ORDERED: HYDROCODONE/ACETAMINOPHEN 5-325 MG (6 TAB/ER DISP) PO PRN (00:51)
[2018-12-19] MEDS ORDERED: HYDROCODONE/ACETAMINOPHEN 5-325 MG TABLET PO ONE (00:51)
[2018-12-19 01:25] VITALS: BP 114/69
== END 2018-12-19 01:25 | disposition home or self-care (01) ==
LOC: ER 21:41
DX: L03.115 Cellulitis of right lower limb (principal); Z98.890 Other specified postprocedural states; Z88.0 Allergy status to penicillin; Z88.1 Allergy status to other antibiotic agents; Z91.048 Other nonmedicinal substance allergy status
CPT/HCPCS: 36415; 85025; 80048; J3370; J0696; A9270 ×2

== ENCOUNTER 2018-12-22 09:08 | Day surgery (SDC) | payer MEDICARE, MEDICAID ==
[2018-12-22] MEDS ORDERED: BUPIVACAINE HCL 0.5%-EPI 1:200000 INJ/PF 30 ML VIAL ONE (10:23)
[2018-12-22] MEDS ORDERED: ONDANSETRON HCL INJ/PF 4 MG/2 ML SDV ONE ×2 (10:29→12:51)
[2018-12-22] MEDS ORDERED: FENTANYL CITRATE INJ/PF 100 MCG/2 ML AMPUL ONE ×2 (10:38→12:50)
[2018-12-22] MEDS ORDERED: PROMETHAZINE HCL INJ 25 MG/1 ML VIAL ONE (12:50)
[2018-12-22] MEDS ORDERED: MIDAZOLAM 2 MG/2 ML INJ ONE (12:51)
[2018-12-22] MEDS ORDERED: PROPOFOL INJ 200 MG/20 ML VIAL IV ONE (12:51)
[2018-12-22] MEDS ORDERED: DEXAMETHASONE SOD PHOSPHATE INJ 4 MG/1 ML VIAL ONE (12:51)
[2018-12-22] MEDS ORDERED: ACETAMINOPHEN 1,000 MG/100 ML RTUPB IV ONE (12:51)
[2018-12-22] MEDS ORDERED: FENTANYL CITRATE INJ/PF 100 MCG/2 ML AMPUL IV PRN ×3 (13:23)
[2018-12-22] MEDS ORDERED: MORPHINE SULFATE 10 MG/ML INJ IV PRN (13:23)
[2018-12-22] MEDS ORDERED: MEPERIDINE HCL/PF INJ 25 MG/1 ML DISP.SYRIN IV PRN (13:23)
[2018-12-22] MEDS ORDERED: PROMETHAZINE HCL INJ 25 MG/1 ML VIAL IV PRN ×2 (13:23)
--- NOTE | 2018-12-22 13:35 | Discharge Summary ---
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 Date of Surgery: 12/22/18 Discharge Date: 12/22/18 Condition: Good Treatment or Instructions: Touchdown weightbearing restriction right lower extremity Prescriptions: Oxycodone HCl/Acetaminophen [Percocet 5-325 mg Tablet] 1 tab PO Q6HP PRN #15 tablet PRN Reason: Doxycycline Hyclate 100 mg PO BID #14 capsule Referrals: ENRRIQUE ALVARADO FNP [Primary Care Provider] - Discharge Diet: As Tolerated, Regular Respiratory Treatments at Home: Deep Breathing/Coughing Discharge Activity: Balance Activity w/Rest, No tub bath Home Care Assistance: None Needed Report the Following to Your Physician Immediately: Shortness of Breath, Fever over 101 Degrees, Drainage-Foul Smelling
--- NOTE | 2018-12-22 13:37 | Operative Report ---
Operative Report DATE OF SURGERY: 12/22/18 PREOPERATIVE DIAGNOSIS: Infected hardware right ankle OPERATION: Hardware removal debridement including skin, dermis, and underlying bone SURGEON: SAAD MOCTEZUMA ANESTHESIA: GA TISSUE REMOVED OR ALTERED: Cultures to microbiology. Tissue to pathology. Implants to CSS ESTIMATED BLOOD LOSS: Minimal PROCEDURE: With the patient supine Afrin table the right lower extremity is prepped and draped sterile fashion. Limb is elevated for exsanguination tourniquet inflated 280 torr. A 12 cm longitudinal incisions made over the lateral distal fibula and sharp dissection was carried incision down to the plate. The underlying plate incision was visualized using a periosteal elevator. The 5 existing screws are removed as is the underlying plate. The tissue is debrided. Cultures were sent for microbiology. The remainder of the tissue including bone through the syndesmosis fixation was sent to pathology. The wound is irrigated with 400 cc of normal saline. Tourniquet is deflated. Hemostasis obtained with electrocautery. Wound is closed in layers with interrupted Vicryl followed by nylon. Sterile compressive dressing posterior plaster splint were applied the patient's return to PACU in satisfactory condition.
[2018-12-22] MEDS: FENTANYL CITRATE INJ/PF 100 MCG/2 ML AMPUL ONE ×2 (14:26→14:30)
[2018-12-22] MEDS ORDERED: OXYCODONE-ACETAMINOPHEN 5-325 MG TABLET PO PRN (14:57)
[2018-12-22] MEDS ORDERED: OXYCODONE-ACETAMINOPHEN 5-325 MG TABLET ONE (15:12)
[2018-12-22] MEDS ORDERED: HYDROMORPHONE HCL INJ/PF 2 MG/ML AMPULE ONE (15:20)
[2018-12-22 16:51] VITALS: BP 114/71
== END 2018-12-22 17:15 | disposition home or self-care (01) ==
LOC: UNDOADMIN 09:08 → INOR 09:08 → OROUT 09:08 → EDSTATUS 11:15 → OROUT 17:15
PROVIDERS: ATTEND Orthopaedic Surgery
DX: T84.624A Infection and inflammatory reaction due to internal fixation device of right fibula, initial encounter (principal); Y83.8 Other surgical procedures as the cause of abnormal reaction of the patient, or of later complication, without mention of misadventure at the time of the procedure; L03.119 Cellulitis of unspecified part of limb; F17.210 Nicotine dependence, cigarettes, uncomplicated; Z88.8 Allergy status to other drugs, medicaments and biological substances; Z88.1 Allergy status to other antibiotic agents; Z79.1 Long term (current) use of non-steroidal anti-inflammatories (NSAID)
CPT/HCPCS: 87070; 87205; 81025; 87075; 87077; 87186; 88304 ×2; 88311; 20680; J2250; J1100; J3010; A9270; J1170; J2550; J2405; J2704; J0131; 1480; J3490

== ENCOUNTER 2019-04-07 02:54 | Inpatient (IN) | payer MEDICARE, MEDICAID ==
[2019-04-07] MEDS ORDERED: MORPHINE SULFATE 10 MG/ML INJ IV ONE ×2 (06:20→08:15)
[2019-04-07] MEDS ORDERED: ONDANSETRON HCL INJ/PF 4 MG/2 ML SDV IV ONE ×2 (06:20→08:15)
[2019-04-07] MEDS ORDERED: NORMAL SALINE 1000 ML 1,000 ML IV ONE (06:20)
[2019-04-07] MEDS ORDERED: KETOROLAC TROMETHAMINE INJ/PF 30 MG/1 ML SDV IV ONE (06:21)
--- NOTE | 2019-04-07 06:26 | ER Document Report ---
ED Eye Complaint - General Chief Complaint: Eye Problem Stated Complaint: SWOLLEN EYE Time Seen by Provider: 04/07/19 06:06 Primary Care Provider: ENRRIQUE ALVARADO FNP [Primary Care Provider] - Follow up as needed Mode of Arrival: Ambulatory Information source: Patient, Relative, [facility] Records Notes: 39-year-old female patient past history of eczema currently on dupilumab reports onset yesterday evening of left eye swelling. There was no injury. It is gotten progressively worse throughout the night and morning. She complains of severe pain around the left eye with severe headache. She reports severe pain with any movement of her eye. Patient reports that while she has been in the emergency room waiting to be seen, the swelling has regressed to the point that she cannot now open the eye. She had been receiving regular injections of the Dupixent, but her last injection was 2 months ago. TRAVEL OUTSIDE OF THE [place] IN LAST 30 DAYS: No - Related Data Allergies/Adverse Reactions: adhesive tape Allergy (Verified 12/21/18 14:59) diphenhydramine [From Benadryl] Allergy (Verified 12/21/18 14:59) erythromycin base Allergy (Verified 12/21/18 14:59) nafcillin Allergy (Verified 12/21/18 14:59) nickel Allergy (Verified 12/21/18 14:59) Past Medical History - General Information source: Patient, [facility] Records - Social History Smoking Status: Current Every Day Smoker Cigarette use (# per day): Yes Chew tobacco use (# tins/day): No Smoking Education Provided: No Frequency of alcohol use: None Drug Abuse: None Occupation: unemployed Lives with: Family Family History: Reviewed & Not Pertinent Patient has suicidal ideation: No Patient has homicidal ideation: No - Past Medical History Cardiac Medical History: Pulmonary Medical History: Neurological Medical History: GI Medical History: Reports: Hx Irritable Bowel Musculoskeletal Medical History: Reports Hx Musculoskeletal Deformity Skin Medical History: Reports Hx Eczema Psychiatric Medical History: Reports: Hx Anxiety, Hx Depression Traumatic Medical History: Reports: Hx Fractures - RIGHT ANKLE bimalleolar fracture Past Surgical History: Reports: Hx Breast Surgery - cyst removal, Hx Section - x2, Hx Tubal Ligation, Hx Urinary Tract Surgery - Urethral reflux surgery as a child., Other - Right ORIF of bimalleolar fracture - Immunizations Hx Diphtheria, Pertussis, Tetanus Vaccination: Yes Review of Systems - Review of Systems Constitutional: No symptoms reported EENT: See HPI Cardiovascular: No symptoms reported Respiratory: No symptoms reported Gastrointestinal: No symptoms reported Genitourinary: No symptoms reported Female Genitourinary: No symptoms reported Musculoskeletal: No symptoms reported Skin: Other - Eczema Hematologic/Lymphatic: No symptoms reported Neurological/Psychological: No symptoms reported Physical Exam - Vital signs Vitals: Temp Pulse Resp BP Pulse Ox 97.8 F 84 16 114/65 100 04/07/19 02:59 04/07/19 02:59 04/07/19 02:59 04/07/19 02:59 04/07/19 02:59 Interpretation: Normal - General General appearance: Alert, Anxious In distress: Moderate - HEENT Head: Normocephalic, Atraumatic Eyes: Other - The left eye has considerable swelling to the upper lid. It is al most ecchymotic appearing and similar to what is seen in a traumatic event. The upper eyelid swelling extends to the inferior border of the eyebrow and abruptly stops. There are eczema type lesions with crusting just above the eyebrows on both sides. The left eye is completely swollen shut with mild edema to the lower lid but grossly swollen upper lid. The swollen area is tender to palpate. Attempts to retract the lids does show a normal-appearing eye and the patient reports that she does have intact vision when the lids are pulled apart. I am unable to get the lids more than about 1 mm apart due to the patient's pain and thrashing about. There does seem to be some mucousy discharge in both eyes. Mouth/Lips: Normal Mucous membranes: Normal Neck: Normal - Respiratory Respiratory status: No respiratory distress Breath sounds: Normal - Cardiovascular Rhythm: Regular Heart sounds: Normal auscultation Murmur: No - Abdominal Inspection: Normal - Back Back: Normal - Extremities General upper extremity: Normal inspection General lower extremity: Normal inspection - Neurological Neuro grossly intact: Yes - Psychological Associated symptoms: Agitated, Anxious - Skin Skin Temperature: Warm Skin Moisture: Dry Skin Color: Normal Irregularity with: Other - There are areas of eczematous skin, most prominent on the forehead above either eye. Course - Vital Signs Vital signs: Temp Pulse Resp BP Pulse Ox 97.8 F 84 16 114/65 100 04/07/19 02:59 04/07/19 02:59 04/07/19 02:59 04/07/19 02:59 04/07/19 02:59 - Laboratory Result Diagrams: 04/07/19 06:34 04/07/19 06:34 Laboratory results interpreted by me: 04/07/19 04/07/19 06:34 06:34 WBC 12.8 H Absolute Neutrophils 9.8 H BUN 6 L - Diagnostic Test Radiology reviewed: Image reviewed, Reports reviewed - Left periorbital cellulitis with no post septal involvement of the left eye and no fluid collection to suggest abscess. - Consults Dr. Shrestha Time consulted: 08:02 Consulted provider: other - Will be available for consultation if needed. Dr. Kennedy Time consulted: 08:20 Consulted provider: will come to ER Discharge - Discharge Clinical Impression: Periorbital cellulitis of left eye Condition: Stable Disposition: ADMITTED INPATIENT Admitting Provider: Marcia (Hospitalist) Unit Admitted: Medical Floor Referrals: ENRRIQUE ALVARADO FNP [Primary Care Provider] - Follow up as needed Scribe Attestation: 04/07/19 07:49 I personally performed the services described in the documentation, reviewed and edited the documentation which was dictated to the scribe in my presence, and it accurately records my words and actions.
[2019-04-07 06:56] LABS: ABSOLUTE BASOPHILS # (AUTO) 0.1 10^3/uL (0.0-0.2); ABSOLUTE EOSINOPHILS # (AUTO) 0.1 10^3/uL (0.0-0.6); ABSOLUTE LYMPHOCYTES (AUTO) 1.7 10^3/uL (0.5-4.7); ABSOLUTE NEUT (AUTO) 9.8 10^3/uL (1.7-8.2); BASOPHILS % (AUTO) 0.8 % (0-2); HEMATOCRIT 40.9 % (36.0-47.0); HEMOGLOBIN 13.9 g/dL (12.0-15.5); LYMPHOCYTES % (AUTO) 13.6 % (13-45); MEAN CORPUSCULAR HEMOGLOBIN 29.5 pg (27.0-33.4); MEAN CORPUSCULAR VOLUME 87 fl (80-97); MONOCYTES % (AUTO) 7.7 % (3-13); PLATELET COUNT 330 10^3/uL (150-450); RED BLOOD COUNT 4.73 10^6/uL (3.72-5.28); RED CELL DISTRIBUTION WIDTH 13.2 % (11.5-14.0); SEGMENTED NEUTROPHILS % (AUTO) 76.9 % (42-78); TOTAL CELLS COUNTED % (AUTO) 100 %; WHITE BLOOD COUNT 12.8 10^3/uL (4.0-10.5)
[2019-04-07 07:08] LABS: ALANINE AMINOTRANSFERASE 29 U/L (9-52); ALKALINE PHOSPHATASE 106 U/L (38-126); ANION GAP 8 (5-19); ASPARTATE AMINO TRANSFERASE 20 U/L (14-36); BILIRUBIN,DIRECT 0.1 mg/dL (0.0-0.4); BILIRUBIN,TOTAL 0.2 mg/dL (0.2-1.3); BLOOD UREA NITROGEN 6 mg/dL (7-20); CALCIUM 9.4 mg/dL (8.4-10.2); CARBON DIOXIDE 30 mmol/L (22-30); CHLORIDE 103 mmol/L (98-107); GLUCOSE 96 mg/dL (75-110); SODIUM 141.1 mmol/L (137-145); TOTAL PROTEIN 6.6 g/dL (6.3-8.2)
--- NOTE | 2019-04-07 07:09 | RADIOLOGY REPORT (SQ) ---
CT face with contrast on 04/07/2019 at 6:38 AM CLINICAL INDICATION: Left periorbital swelling and pain TECHNIQUE: Multiple axial images are obtained throughout the face following the administration of IV contrast. Sagittal and coronal reformatted images are also performed and reviewed. This exam was performed according to our departmental dose-optimization program, which includes automated exposure control, adjustment of the mA and/or kV according to patient size and/or use of iterative reconstruction technique. Total DLP is 163.56 mGy*cm. COMPARISON: CT angiogram head from 08/31/2017 FINDINGS: Mucosal thickening is noted in the left greater than right maxillary sinuses. There is also chronic mucosal thickening in the left ethmoid sinus. There has been resection or erosion of the nasal septum. There has also been apparent surgical resection of the left middle turbinate. Please correlate with surgical history. There is left periorbital soft tissue swelling with associated fat stranding consistent with cellulitis. There is no fluid collection to suggest abscess. No evidence of post septal involvement of the left eye is noted. There are no acute fracture lines. IMPRESSION: Findings consistent with a left periorbital cellulitis with no post septal involvement of the left eye and no fluid collection to suggest abscess.
[2019-04-07] MEDS ORDERED: CLINDAMYCIN 600 MG/D5W RTU 600 MG/50 ML RTUPB IV ONE (07:30)
[2019-04-07] MEDS ORDERED: FAMOTIDINE INJ/PF 20 MG/2 ML SDV IV ONE (08:15)
[2019-04-07] MEDS ORDERED: ACETAMINOPHEN 650 MG SUPP.RECT PR PRN (10:26)
[2019-04-07] MEDS ORDERED: MORPHINE SULFATE 10 MG/ML INJ IV PRN (10:34)
--- NOTE | 2019-04-07 10:57 | PDOC H&P ---
History of Present Illness Admission Date/PCP: 04/07/19 08:50 MARILEE BRANDON Patient complains of: Increased pain and progressive swelling left eye History of Present Illness: DANIELA DOE is a 39 year old female who noticed increased discomfort and headache on the left side/holiness. This began to worsen. It did not respond to [id number] analgesia. Over the next several hours the pain increased and she began to notice some swelling. By 2:00 this morning there was a significant amount of pain and more swelling especially the upper eyelid. She denied any changes of vision or floaters. She did have some nausea. She was given IV antibiotics in the emergency department and referred to the hospital service for admission. Past Medical History Cardiac Medical History: Denies: Atrial Fibrillation, Congestive Heart Failure, Hypertension Pulmonary Medical History: Denies: Pneumonia EENT Medical History: Denies: Ears, Nose, Throat Neurological Medical History: Denies: Hemorrhagic CVA, Ischemic CVA Endocrine Medical History: Denies: Diabetes Mellitus Type 1, Diabetes Mellitus Type 2, Hyperthyroidism, Hypothyroidism Renal/ Medical History: Reports: Other - Obstructive uropathy as a child requiring surgery. History of renal absces Denies: Chronic Kidney Disease, Nephrolithiasis Malignancy Medical History: Reports: None GI Medical History: Reports: Gastroesophageal Reflux Disease - As an . Surgically corrected., Other - Malabsorption Musculoskeltal Medical History: Denies: Fibromyalgia Skin Medical History: Reports: Eczema, Other - Atopic dermatitis Psychiatric Medical History: Reports: Depression Traumatic Medical History: Reports: None Hematology: Denies: Bleeding Tendencies Infectious Medical History: Denies: None Past Surgical History Past Surgical History: Reports: Section - x2, Tubal Ligation, Other - Right ORIF of bimalleolar fracture,Ureter surgery as an , gastric Edward Social History Information Source: Patient Lives with: Family Smoking Status: Current Every Day Smoker Frequency of Alcohol Use: None Hx Recreational Drug Use: No Hx Prescription Drug Abuse: No - Advance Directive Resuscitation Status: Full Code Surrogate healthcare decision maker:: No documentation completed. Did review documents in the admission packet. She wishes that her sister be the designated decision maker if she is incapacitated. Family History Family History: Arthritis, CAD, Malignancy - Prostate, Other - Depression, anxiety, Parental Family History Reviewed: Yes Children Family History Reviewed: Yes Sibling(s) Family History Reviewed.: Yes Medication/Allergy Home Medications: No Home Medications 04/07/19 Allergies/Adverse Reactions: adhesive tape Allergy (Verified 12/21/18 14:59) diphenhydramine [From Benadryl] Allergy (Verified 12/21/18 14:59) erythromycin base Allergy (Verified 12/21/18 14:59) nafcillin Allergy (Verified 12/21/18 14:59) nickel Allergy (Verified 12/21/18 14:59) Review of Systems Constitutional: PRESENT: anorexia - Long-standing GI issues, headache(s), other - Markedly malnourished Eyes: ABSENT: visual disturbances Ears: ABSENT: hearing changes Nose, Mouth, and Throat: PRESENT: headache(s). ABSENT: mouth pain, sore throat Cardiovascular: ABSENT: chest pain, edema, palpitations Respiratory: ABSENT: cough, hemoptysis, sputum Gastrointestinal: PRESENT: abdominal pain - With meals, bloating - On occasion, diarrhea - Postprandial. Sporadic., nausea. ABSENT: hematemesis, hematochezia, melena, vomiting Genitourinary: ABSENT: difficulty urinating, dysuria, hematuria Musculoskeletal: PRESENT: other - Incision right ankle. ABSENT: joint swelling Integumentary: PRESENT: lesions - Atopic dermatitis Neurological: ABSENT: abnormal speech, confusion, lack of coordination, memory loss, syncope, tremor(s), vertigo Psychiatric: ABSENT: anxiety, depression, hallucinations Endocrine: ABSENT: cold intolerance, heat intolerance, polydipsia, polyphagia, polyuria Hematologic/Lymphatic: ABSENT: easy bleeding, easy bruising, lymphadenopathy Allergic/Immunologic: ABSENT: seasonal rhinorrhea Physical Exam Vital Signs: Temp Pulse Resp BP Pulse Ox 97.8 F 84 16 114/65 100 04/07/19 02:59 04/07/19 02:59 04/07/19 02:59 04/07/19 02:59 04/07/19 02:59 Intake & Output 04/06/19 04/07/19 04/08/19 06:59 06:59 06:59 Intake Total 1050 Balance 1050 Weight 43.2 kg General appearance: PRESENT: cooperative, mild distress, thin - Extremely thin, well-developed Head exam: PRESENT: atraumatic, normocephalic Eye exam: PRESENT: conjunctiva pink, EOMI - Right eye extraocular muscles intact., periorbital swelling - Eyes swollen shut. ABSENT: scleral icterus Ear exam: PRESENT: normal external ear exam Mouth exam: PRESENT: moist, tongue midline Teeth exam: PRESENT: other - Upper dentures Neck exam: PRESENT: other - Pronounced vasculature due to body habitus. ABSENT: carotid bruit, lymphadenopathy Respiratory exam: PRESENT: clear to auscultation jack, symmetrical, unlabored. ABSENT: accessory muscle use, rales, rhonchi, tachypnea, wheezes Cardiovascular exam: PRESENT: RRR, +S1, +S2. ABSENT: diastolic murmur, systolic murmur Pulses: PRESENT: normal radial pulses, normal dorsalis pedis pul GI/Abdominal exam: PRESENT: normal bowel sounds, soft, other - incision well-healed. ABSENT: ascites, distended, tenderness Rectal exam: PRESENT: deferred Gentrourinary exam: ABSENT: indwelling catheter Extremities exam: ABSENT: calf tenderness, joint swelling, pedal edema Musculoskeletal exam: PRESENT: ambulatory, full ROM - Hyperflexible. ABSENT: no rmal inspection - Marked decrease in muscle mass Neurological exam: PRESENT: alert, awake, oriented to person, oriented to place, oriented to time, oriented to situation, CN II-XII grossly intact. ABSENT: motor sensory deficit Psychiatric exam: PRESENT: appropriate affect, normal mood. ABSENT: agitated, anxious Focused psych exam: ABSENT: delusional, restlessness Skin exam: PRESENT: other - Periorbital swelling on the left. Tenderness. No discharge from the eye. Results Laboratory Results: 04/07/19 06:34 04/07/19 06:34 04/07/19 04/07/19 04/07/19 06:34 06:34 06:34 WBC 12.8 H RBC 4.73 Hgb 13.9 Hct 40.9 MCV 87 MCH 29.5 MCHC 34.0 RDW 13.2 Plt Count 330 Seg Neutrophils % 76.9 Lymphocytes % 13.6 Monocytes % 7.7 Eosinophils % 1.0 Basophils % 0.8 Absolute Neutrophils 9.8 H Absolute Lymphocytes 1.7 Absolute Monocytes 1.0 Absolute Eosinophils 0.1 Absolute Basophils 0.1 Sodium 141.1 Potassium 4.0 Chloride 103 Carbon Dioxide 30 Anion Gap 8 BUN 6 L Creatinine 0.59 Est GFR ( Amer) > 60 Est GFR (Non-Af Amer) > 60 Glucose 96 Calcium 9.4 Total Bilirubin 0.2 AST 20 ALT 29 Alkaline Phosphatase 106 Total Protein 6.6 Albumin 4.0 Serum HCG, Qual NEGATIVE Impressions: Facial Bones CT 04/07/19 06:31 IMPRESSION: Findings consistent with a left periorbital cellulitis with no post septal involvement of the left eye and no fluid collection to suggest abscess. Assessment and Plan - Diagnosis (1) Periorbital cellulitis of left eye Is this a current diagnosis for this admission?: Yes Plan: 04/07/2019-over the short course of 12 hours patient developed rapidly progressive swelling and pain in the left eye and surrounding tissue. The pain is controlled with IV morphine. She received 1 dose of IV clindamycin and is applying cool packs. The swelling has begun to decrease and she can partially o pen her eye at this time. CT scan showed no involvement of the globe. At this time we will continue IV clindamycin. Hopefully she will have rapid turnaround. If there are any changes or decline ophthalmology will see the patient. (2) Malnutrition of moderate degree ([place]: 60% to less than 75% of standard weight) Is this a current diagnosis for this admission?: Yes Plan: 04/07/2019-the patient has long-standing problems with absorption. She spent 11 months hospitalized starting at the age of 6 months. She had surgery for reflux and has a long history of malabsorption. She has very poor appetite. She also reports heightened gastrocolic reflex intermittently. She also has waves of abdominal pain intermittently. She does not tolerate many foodstuffs. She has tried protein supplements and does not typically tolerate them. We did discuss the use of Beneprotein. I have ordered a dietary consult. - Time Time Spent with patient: 35 or more minutes Medications reviewed and adjusted accordingly: Yes Anticipated discharge: Home Within: within 48 hours
--- NOTE | 2019-04-07 11:00 | ADVANCED CARE ---
- Diagnosis (1) Periorbital cellulitis of left eye Diagnosis Current: Yes (2) Malnutrition of moderate degree ([place]: 60% to less than 75% of standard weight) Diagnosis Current: Yes Attendance: The patient, her significant other in 1 of her children were present at the bedside. Resuscitation Status: Full Code Discussion: In light of her significant comorbidities that have plagued her from infancy, we discussed the benefit of having a healthcare proxy document completed. At her age the most significant risk is catastrophic injury such as trauma. She has designated her sister as the decision maker should she be incapacitated. I explained that the benefit of such document is that she can outline the extent of treatment that she would like to undergo and restrictions such as not wanting to be in a long-term for the rest of her life, being in a vegetative state or tracheostomy and PEG tube as examples. I did point out the blank document that is in her admissions packet. I asked her to review it during her admission. Care Planning Goals: The goal would be to have the patient complete the document and consider options should she become incapacitated acutely at this time or many years from now as she gets older. Document(s) Completed: None at this time. The blank form in the admissions packet was pointed out to the patient. Time Spent: 20
[2019-04-07] MEDS: ACETAMINOPHEN 325 MG TABLET PO PRN ×2 (11:45→16:34)
[2019-04-07] MEDS: NORMAL SALINE 1000 ML 1,000 ML IV PRN (12:59)
[2019-04-07] MEDS: CLINDAMYCIN 300 MG/D5W RTU 300 MG/50 ML RTUPB IV SCH ×2 (16:35→21:49)
[2019-04-07] MEDS ORDERED: MORPHINE SULFATE 10 MG/ML INJ ONE (16:57)
[2019-04-07] MEDS: MORPHINE SULFATE 10 MG/ML INJ IV PRN (21:39)
[2019-04-07] MEDS: FAMOTIDINE INJ/PF 20 MG/2 ML SDV IV SCH (21:49)
[2019-04-08] MEDS: MORPHINE SULFATE 10 MG/ML INJ IV PRN ×6 (02:16→20:40)
[2019-04-08] MEDS: NORMAL SALINE 1000 ML 1,000 ML IV PRN ×2 (02:43→13:35)
[2019-04-08] MEDS ORDERED: MORPHINE SULFATE 10 MG/ML INJ IV PRN ×3 (05:48→05:53)
[2019-04-08] MEDS: CLINDAMYCIN 300 MG/D5W RTU 300 MG/50 ML RTUPB IV SCH ×2 (05:48→13:33)
[2019-04-08 06:18] LABS: HEMATOCRIT 34.6 % (36.0-47.0); MEAN CORPUSCULAR HEMOGLOBIN 29.6 pg (27.0-33.4); MEAN CORPUSCULAR HGB CONC 33.5 g/dL (32.0-36.0); MEAN CORPUSCULAR VOLUME 88 fl (80-97); PLATELET COUNT 246 10^3/uL (150-450); RED BLOOD COUNT 3.92 10^6/uL (3.72-5.28); RED CELL DISTRIBUTION WIDTH 13.1 % (11.5-14.0); WHITE BLOOD COUNT 13.1 10^3/uL (4.0-10.5)
[2019-04-08] MEDS: ONDANSETRON HCL INJ/PF 4 MG/2 ML SDV IV PRN ×4 (06:25→20:40)
[2019-04-08 06:33] LABS: HEMOGLOBIN 11.6 g/dL (12.0-15.5)
[2019-04-08 06:35] LABS: ANION GAP 8 (5-19); BLOOD UREA NITROGEN 8 mg/dL (7-20); CALCIUM 8.4 mg/dL (8.4-10.2); CARBON DIOXIDE 23 mmol/L (22-30); CHLORIDE 108 mmol/L (98-107); GLUCOSE 85 mg/dL (75-110); SODIUM 138.5 mmol/L (137-145)
[2019-04-08] MEDS: FAMOTIDINE INJ/PF 20 MG/2 ML SDV IV SCH ×2 (10:34→21:29)
[2019-04-08] MEDS: ENOXAPARIN SODIUM INJ 30 MG/0.3 ML DISP.SYRIN SUBCUT SCH (10:39)
[2019-04-08] MEDS ORDERED: NORMAL SALINE 1000 ML 1,000 ML IV PRN ×3 (14:05→21:05)
[2019-04-08] MEDS ORDERED: CARBOXYMETHYLCELLULOSE SOD 0.5% 0.4 ML DROPERETTE OS PRN (20:46)
--- NOTE | 2019-04-08 21:07 | PDOC PROGRESS REPORT ---
Subjective Progress Note for:: 04/08/19 Subjective:: Still complaining of significant pain. The swelling has not significantly improved. There is still discoloration of the swollen tissue. The patient still cannot open her eye. Reason For Visit: PERIORBITAL CELLULITIS OF LEFT EYE Physical Exam Vital Signs: Temp Pulse Resp BP Pulse Ox 98.5 F 78 16 106/59 L 99 04/08/19 11:59 04/08/19 11:59 04/08/19 11:59 04/08/19 11:59 04/08/19 11:59 Intake & Output 04/07/19 04/08/19 04/09/19 06:59 06:59 06:59 Intake Total 2200 1000 Balance 2200 1000 Weight 43.2 kg General appearance: PRESENT: mild distress, thin Eye exam: PRESENT: periorbital swelling - can only open a small amount Ear exam: PRESENT: normal external ear exam Teeth exam: PRESENT: other - dentures Neck exam: PRESENT: full ROM. ABSENT: carotid bruit, lymphadenopathy Respiratory exam: PRESENT: clear to auscultation jack, symmetrical, unlabored. ABSENT: rales, rhonchi, tachypnea, wheezes Cardiovascular exam: PRESENT: RRR, +S1, +S2 GI/Abdominal exam: PRESENT: normal bowel sounds, soft. ABSENT: distended, tenderness Rectal exam: PRESENT: deferred Gentrourinary exam: ABSENT: indwelling catheter Extremities exam: ABSENT: pedal edema Musculoskeletal exam: PRESENT: other - Decreased muscle mass Neurological exam: PRESENT: alert, awake, oriented to person, oriented to place, oriented to time, oriented to situation, CN II-XII grossly intact Psychiatric exam: PRESENT: anxious, flat affect. ABSENT: agitated Focused psych exam: ABSENT: delusional, restlessness Skin exam: ABSENT: normal color - dark discoloration over the swollen part of her left eye Results Laboratory Results: 04/08/19 05:58 04/08/19 05:58 04/08/19 04/08/19 05:58 05:58 WBC 13.1 H RBC 3.92 Hgb 11.6 L D Hct 34.6 L MCV 88 MCH 29.6 MCHC 33.5 RDW 13.1 Plt Count 246 Sodium 138.5 Potassium 4.0 Chloride 108 H Carbon Dioxide 23 Anion Gap 8 BUN 8 Creatinine 0.54 Est GFR ( Amer) > 60 Est GFR (Non-Af Amer) > 60 Glucose 85 Calcium 8.4 Magnesium 2.1 Impressions: Facial Bones CT 04/07/19 06:31 IMPRESSION: Findings consistent with a left periorbital cellulitis with no post septal involvement of the left eye and no fluid collection to suggest abscess. Assessment and Plan - Diagnosis (1) Periorbital cellulitis of left eye Is this a current diagnosis for this admission?: Yes Plan: 04/07/2019-over the short course of 12 hours patient developed rapidly p rogressive swelling and pain in the left eye and surrounding tissue. The pain is controlled with IV morphine. She received 1 dose of IV clindamycin and is applying cool packs. The swelling has begun to decrease and she can partially open her eye at this time. CT scan showed no involvement of the globe. At this time we will continue IV clindamycin. Hopefully she will have rapid turnaround. If there are any changes or decline ophthalmology will see the patient. 04/08/2019-I am disappointed in the lack of improvement. Therefore I will increase the clindamycin to 600 mg every 8 hours. I have ordered a repeat CBC tomorrow. In addition I will order eyedrops for moisturizing to possibly im prove comfort. She still uses cold compresses. Because of her pain Dr. Pizarro increase the IV morphine dosing. We will try and use it sparingly but I want to provide adequate analgesia for the patient. (2) Malnutrition of moderate degree ([place]: 60% to less than 75% of standard we ight) Is this a current diagnosis for this admission?: Yes Plan: 04/07/2019-the patient has long-standing problems with absorption. She spent 11 months hospitalized starting at the age of 6 months. She had surgery for reflux and has a long history of malabsorption. She has very poor appetite. She also reports heightened gastrocolic reflex intermittently. She also has waves of abdominal pain intermittently. She does not tolerate many foodstuffs. She has tried protein supplements and does not typically tolerate them. We did discuss the use of Beneprotein. I have ordered a dietary consult. 04/08/2019-during this encounter I did meet the dietitian who was getting to work with the patient. The patient has lifelong issues with her GI tract. She tried orange juice this morning and has not been comfortable. We discussed the fact that the urine she is has lots of acid. I suggested that she try apple juice. Yogurt might be another option. Her nutritional state has been a lifelong issue. I have asked the dietitian to consult in hopes of finding a tolerable protein source for the patient. Because of her poor intake I will increase her IV fluids. - Time Time Spent with patient: 15-24 minutes Medications reviewed and adjusted accordingly: Yes Anticipated discharge: Home Disposition: The patient does meet inpatient criteria. Her status was changed. We will continue to monitor her white blood cell count. I would like to see it trend down prior to discharge. In addition we will have to find a tolerable regimen for the patient as she has significant difficulties with her GI tract. We may utilize a liquid form of the antibiotic to try and help absorption.
[2019-04-08] MEDS: CLINDAMYCIN 600 MG/D5W RTU 600 MG/50 ML RTUPB IV SCH (21:29)
[2019-04-09] MEDS: MORPHINE SULFATE 10 MG/ML INJ IV PRN ×5 (00:25→14:17)
[2019-04-09] MEDS: CLINDAMYCIN 600 MG/D5W RTU 600 MG/50 ML RTUPB IV SCH ×3 (05:49→21:07)
[2019-04-09] MEDS: ONDANSETRON HCL INJ/PF 4 MG/2 ML SDV IV PRN ×2 (05:49→12:03)
[2019-04-09 05:55] LABS: ABSOLUTE LYMPHOCYTES (AUTO) 1.4 10^3/uL (0.5-4.7); ABSOLUTE MONOCYTES (AUTO) 1.1 10^3/uL (0.1-1.4); BASOPHILS % (AUTO) 0.4 % (0-2); EOSINOPHILS % (AUTO) 0.3 % (0-6); HEMATOCRIT 32.9 % (36.0-47.0); HEMOGLOBIN 11.1 g/dL (12.0-15.5); LYMPHOCYTES % (AUTO) 12.3 % (13-45); MEAN CORPUSCULAR HEMOGLOBIN 29.9 pg (27.0-33.4); MEAN CORPUSCULAR HGB CONC 33.7 g/dL (32.0-36.0); MEAN CORPUSCULAR VOLUME 89 fl (80-97); MONOCYTES % (AUTO) 9.2 % (3-13); PLATELET COUNT 244 10^3/uL (150-450); RED CELL DISTRIBUTION WIDTH 13.2 % (11.5-14.0); SEGMENTED NEUTROPHILS % (AUTO) 77.8 % (42-78); TOTAL CELLS COUNTED % (AUTO) 100 %; WHITE BLOOD COUNT 11.6 10^3/uL (4.0-10.5)
[2019-04-09 06:09] LABS: ANION GAP 8 (5-19); BLOOD UREA NITROGEN 10 mg/dL (7-20); CALCIUM 8.8 mg/dL (8.4-10.2); CARBON DIOXIDE 22 mmol/L (22-30); CHLORIDE 109 mmol/L (98-107); GLUCOSE 96 mg/dL (75-110); POTASSIUM 4.1 mmol/L (3.6-5.0); SODIUM 139.2 mmol/L (137-145)
[2019-04-09] MEDS: FAMOTIDINE INJ/PF 20 MG/2 ML SDV IV SCH ×2 (10:31→21:07)
[2019-04-09] MEDS: ENOXAPARIN SODIUM INJ 30 MG/0.3 ML DISP.SYRIN SUBCUT SCH (10:50)
--- NOTE | 2019-04-09 11:39 | PDOC PROGRESS REPORT ---
Subjective Progress Note for:: 04/09/19 Subjective:: Nursing reports that the patient was settled earlier. She is very anxious and restless. Scratching her torso, arms, legs and in fact the infected area of her left periorbital tissue. Reason For Visit: PERIORBITAL CELLULITIS Physical Exam Vital Signs: Temp Pulse Resp BP Pulse Ox 98 F 74 16 115/64 99 04/09/19 07:00 04/09/19 07:00 04/09/19 07:00 04/09/19 07:00 04/09/19 07:00 Intake & Output 04/08/19 04/09/19 04/10/19 06:59 06:59 06:59 Intake Total 2200 1250 Balance 2200 1250 General appearance: PRESENT: mild distress, thin, other - Extremely restless Head exam: PRESENT: other - Still with swelling in the left periorbital area. Ear exam: PRESENT: normal external ear exam Teeth exam: PRESENT: poor dentation Respiratory exam: PRESENT: clear to auscultation jack, symmetrical, unlabored. ABSENT: accessory muscle use, rales, rhonchi, tachypnea, wheezes Cardiovascular exam: PRESENT: +S1, +S2, systolic murmur - 2/6, tachycardia GI/Abdominal exam: PRESENT: normal bowel sounds, soft, tenderness - Diffuse nonspecific tenderness. ABSENT: distended, guarding Rectal exam: PRESENT: deferred Musculoskeletal exam: PRESENT: other - Decreased muscle mass Neurological exam: PRESENT: alert, awake, oriented to person, oriented to place, oriented to time, oriented to situation, CN II-XII grossly intact Psychiatric exam: PRESENT: agitated - Patient could not stop itching during the entire encounter. This includes her legs, arms, torso and in fact the area near her left eye., anxious, unusual affect Focused psych exam: PRESENT: restlessness. ABSENT: delusional Skin exam: PRESENT: pallor, other - Multiple excoriations diffusely over the abdomen and arms. Results Laboratory Results: 04/09/19 05:36 04/09/19 05:36 04/09/19 04/09/19 05:36 05:36 WBC 11.6 H RBC 3.70 L Hgb 11.1 L Hct 32.9 L MCV 89 MCH 29.9 MCHC 33.7 RDW 13.2 Plt Count 244 Seg Neutrophils % 77.8 Lymphocytes % 12.3 L Monocytes % 9.2 Eosinophils % 0.3 Basophils % 0.4 Absolute Neutrophils 9.0 H Absolute Lymphocytes 1.4 Absolute Monocytes 1.1 Absolute Eosinophils 0.0 Absolute Basophils 0.0 Sodium 139.2 Potassium 4.1 Chloride 109 H Carbon Dioxide 22 Anion Gap 8 BUN 10 Creatinine 0.59 Est GFR ( Amer) > 60 Est GFR (Non-Af Amer) > 60 Glucose 96 Calcium 8.8 Impressions: Facial Bones CT 04/07/19 06:31 IMPRESSION: Findings consistent with a left periorbital cellulitis with no post septal involvement of the left eye and no fluid collection to suggest abscess. Assessment and Plan - Diagnosis (1) Periorbital cellulitis of left eye Is this a current diagnosis for this admission?: Yes Plan: 04/07/2019-over the short course of 12 hours patient developed rapidly progressive swelling and pain in the left eye and surrounding tissue. The pain is controlled with IV morphine. She received 1 dose of IV clindamycin and is applying cool packs. The swelling has begun to decrease and she can partially open her eye at this time. CT scan showed no involvement of the globe. At this time we will continue IV clindamycin. Hopefully she will have rapid turnaround. If there are any changes or decline ophthalmology will see the patient. 04/08/2019-I am disappointed in the lack of improvement. Therefore I will increase the clindamycin to 600 mg every 8 hours. I have ordered a repeat CBC tomorrow. In addition I will order eyedrops for moisturizing to possibly improve comfort. She still uses cold compresses. Because of her pain Dr. Pizarro increase the IV morphine dosing. We will try and use it sparingly but I want to provide adequate analgesia for the patient. 04/09/2019-there is noticeable decrease in erythema and swelling in the left eye. She can open the eye more than yesterday. Unfortunately she still reports pain. She states that the pain is not just in the infected tissue but "all over my head". She is scratching all over her body. She even itched the area of infection. She was taking Dupixent for atopic dermatitis but has not had a dose in 2 months I believe. We will continue the clindamycin 600 mg dose as this seems to be more effective. Her white blood cell count is improving but not quite yet in the normal range. I expect that tomorrow her white blood cell count will be normal and I told her to anticipate discharge. (2) Malnutrition of moderate degree (Licea: 60% to less than 75% of standard weight) Is this a current diagnosis for this admission?: Yes Plan: 04/07/2019-the patient has long-standing problems with absorption. She spent 11 months hospitalized starting at the age of 6 months. She had surgery for reflux and has a long history of malabsorption. She has very poor appetite. She also reports heightened gastrocolic reflex intermittently. She also has waves of abdominal pain intermittently. She does not tolerate many foodstuffs. She has tried protein supplements and does not typically tolerate them. We did discuss the use of Beneprotein. I have ordered a dietary consult. 04/08/2019-during this encounter I did meet the dietitian who was getting to work with the patient. The patient has lifelong issues with her GI tract. She tried orange juice this morning and has not been comfortable. We discussed the fact that the urine she is has lots of acid. I suggested that she try apple juice. Yogurt might be another option. Her nutritional state has been a lifelong i ssue. I have asked the dietitian to consult in hopes of finding a tolerable protein source for the patient. Because of her poor intake I will increase her IV fluids. 04/09/2019-the dietitian did try and see the patient. Evidently her visits were interrupted either by increasing symptoms with the patient or other personnel including myself. Because of the long-standing troubles with her got, there may be a psychogenic component that has developed over time. She states that since the day before yesterday she is only had a chicken sandwich and sips of soda. I will change the IV fluid to D5 normal saline so that she gets at least 7 carbohydrates. (3) Atopic dermatitis Qualifiers: Atopic dermatitis type: atopic neurodermatitis Qualified Code(s): L20.81 - Atopic neurodermatitis Is this a current diagnosis for this admission?: Yes Plan: 04/09/2019-the patient has a long history of atopic dermatitis. She most recently was on Dupixent. She also states that she is tried Eucrisa. She is quite restless and scratching over her entire body. We had a long discussion about her pruritus and its potential to be related to her anxiety. We discussed antianxiety medications that she is used in the past. She states that she has tried almost everything. She does not like medicines. She does not like staying on medicines. She does not like the side effects of medicines. She does not like needles. I did suggest, and have consulted, psychiatry to assess and then inform the patient about different nonpharmacological treatment plans including counseling and behavior modification. - Time Time Spent with patient: 25-34 minutes Medications reviewed and adjusted accordingly: Yes Anticipated discharge: Home Within: within 24 hours
[2019-04-09] MEDS: DEXTROSE 5%-NORMAL SALINE 1,000 ML IV PRN (14:28)
--- NOTE | 2019-04-09 17:19 | PSYCHOLOGICAL NOTE ---
Psych Note - Psych Note Date seen by psych provider: 04/09/19 Time seen by psych provider: 12:50 - [id number] Psych Note: Reason for Consult: anxiety/constant itching Patient is alert and orientated to person, place, time and circumstance. Mood is slightly liable, shifting from irritable to anxious to dysphoric; however it is congruent with conversation. Affect is mood congruent but was effected by facial swelling from inflection. Patient denies suicidal and homicidal ideation. Delusions are absent and behaviour is congruent with an intact reality based presentation ie organized and linear thought processes. Eye contact is fair. Intellectual abilities appear to be within normal range. Attention and concentration are good. Insight, judgment and impulse control is currently good. Bipolar 2 per history provided by patient Anxiety per history provided by patient Relationship discord No medication recommendations at this time; patient is very adamant that she is not interested in taking any medication Impression\plan: Patient is cleared from acute psychiatric services. Patient reports suffering from severe anxiety most of her life which is resulted in her scratching. She reports that over the years has developed into a coping mechanism and when upset or anxious she tends to itch more. She discloses that she used to be on many different medications however has decided that she no longer wants to have to take any long-term medications since she never saw a change or benefit when she was on the medication. She confirms she would be interested in therapy however has a very difficult time connecting with providers. Patient did actively engage with clinician and was very honest and open with her thoughts and emotions. Patient has very low self-esteem and disclosed to clinician that she would have a very difficult time even engaging in self affirmation alone. Patient did demonstrate strength in personal insight in regards to her thoughts and feelings and how they effect her behaviors and interpersonal relationships. Patient was offered resources and was encouraged to continue trying to find a provider that she feels comfortable with. Patient did identify a provider that she was comfortable with and used to see in [place] however is unwilling to drive that far. Patient was told if she wanted to speak with mental health again at any time to just let staff know; patient was notified of hours the behavioral health team are at the hospital. Please re-consult if new concerns arise. Dr. Young was consulted and the care management of this patient; attending physicians in agreement with recommendations and disposition.
[2019-04-09] MEDS: ACETAMINOPHEN 325 MG TABLET PO PRN (21:08)
[2019-04-10] MEDS: MORPHINE SULFATE 10 MG/ML INJ IV PRN (05:14)
[2019-04-10] MEDS: DEXTROSE 5%-NORMAL SALINE 1,000 ML IV PRN (05:15)
[2019-04-10] MEDS: CLINDAMYCIN 600 MG/D5W RTU 600 MG/50 ML RTUPB IV SCH (05:15)
[2019-04-10] MEDS: ACETAMINOPHEN 325 MG TABLET PO PRN (08:11)
[2019-04-10] MEDS: ONDANSETRON HCL INJ/PF 4 MG/2 ML SDV IV PRN (08:12)
[2019-04-10] MEDS: FAMOTIDINE INJ/PF 20 MG/2 ML SDV IV SCH (10:00)
[2019-04-10 11:34] VITALS: BP 114/64
--- NOTE | 2019-04-10 19:52 | PDOC DISCHARGE SUMMARY ---
General - Admit/Disc Date/PCP Admission Date/Primary Care Provider: 04/07/19 08:50 ENRRIQUE ALVARADOMARILEE Discharge Date: 04/10/19 - Discharge Diagnosis (1) Periorbital cellulitis of left eye Is this a current diagnosis for this admission?: Yes Summary: The patient was placed on clindamycin. The 600 mg dose worked best. By today the swelling in her eye was noticeably decreased and she was able to open her eye. Again her neurogenic pruritus caused her to keep rubbing her eye and sc ratching constantly. I did notice that she lists erythromycin base in her allergies. I believe there are number of reasons for her itching and there is a low probability of an interaction with the medication however her itching is much more pronounced than when I admitted her to the hospital. For that reason I have elected to utilize Bactrim on discharge. Because of her significant GI complexities patient agreed to utilize a suspension. She will get the equivalent of Bactrim double strength 1 tablet twice daily but in suspension form. Provided antibiotics for an additional 7 days. In addition, she was complaining of discomfort in the left eye with slightly blurred vision. I explained to her that there could be abrasion or irritation and prescribed prednisolone drops. This should help reduce any irritation and possibly help with her headache on that side if it is directly related to her eye. Lastly, I did prescribe 10 tablets of 50 mg tramadol to be used sparingly in the event of severe pain. I asked the staff to have an appointment made for the patient see ophthalmology tomorrow when the office is open. (2) Malnutrition of moderate degree (Licea: 60% to less than 75% of standard weight) Is this a current diagnosis for this admission?: Yes Summary: The patient has significantly decreased muscle mass. Her BMI is only 16.9. She also eats very little due to poor digestion and abdominal discomfort. I did encourage her to reestablish with a aircraft steel fabricator however she is reluctant. She has had multiple endoscopies and no significant answers or treatment plans. I did ask the dietitian to work with the patient during her admission. I also discussed protein supplements such as Beneprotein that is able to be mixed with many different food and drink items. (3) Atopic dermatitis Is this a current diagnosis for this admission?: Yes Summary: The patient scratches constantly. I did asked psychiatry to see the patient. Please also see their note. The patient now uses scratching as a coping mechanism. She has been on multiple medications and does not want to be on any medications anymore. I encouraged her not to rub the left eye but it is almost reflexive. She was even on Dupixent and Eucrisa over the years. - Additional Information Resuscitation Status: Full Code Discharge Diet: As Tolerated Discharge Activity: Activity As Tolerated Prescriptions: Prednisolone Acetate/Pf [Prednisolone Acet 1% Eye Drop] 1 drop OS Q6H PRN 7 Days #5 ml PRN Reason: For Pain Sulfamethoxazole/Trimethoprim [Sulfamethoxazole-Tmp Susp] 40 ml PO BID 7 Days #560 ml Tramadol HCl [Ultram 50 mg Tablet] 50 mg PO Q6HP PRN #10 tablet PRN Reason: For Pain Home Medications: Prednisolone Acetate/Pf [Prednisolone Acet 1% Eye Drop] 1 drop OS Q6H PRN 7 Days #5 ml 04/10/19 Sulfamethoxazole/Trimethoprim [Sulfamethoxazole-Tmp Susp] 40 ml PO BID 7 Days #560 ml 04/10/19 Tramadol HCl [Ultram 50 mg Tablet] 50 mg PO Q6HP PRN #10 tablet 04/10/19 History of Present Illness Patient complains of: Increased swelling around the left eye. It is swollen shut. There is increased pain. History of Present Illness: DANIELA DOE is a 39 year old female who noticed increased discomfort and headache on the left side/mandaeism. This began to worsen. It did not respond to [id number] analgesia. Over the next several hours the pain increased and she began to notice some swelling. By 2:00 this morning there was a significant amount of pain and more swelling especially the upper eyelid. She denied any changes of vision or floaters. She did have some nausea. She was given IV antibiotics in the emergency department and referred to the hospital service for admission. Hospital Course Hospital Course: Patient had a fairly benign hospital course. Consistent with her meal pattern she tolerated very few foodstuffs. She becomes quite symptomatic with discomfort, especially when she drank orange juice. The clindamycin 300 mg dose did not seem effective and so she was increased to the 600 mg dose. By the third day her swelling was significantly reduced. She still had discomfort and so she was given antibiotics, Pred forte eyedrops and a small amount of pain pills. During her hospitalization I did asked psychiatry to see the patient as well. Please see the dictated note. Information was provided to the patient for counseling. She adamantly refuses to be on medications. Physical Exam Vital Signs: Temp Pulse Resp BP Pulse Ox 98.1 F 56 L 18 94/38 L 96 04/09/19 15:00 04/09/19 19:45 04/09/19 19:45 04/09/19 19:45 04/09/19 19:45 Intake & Output 04/09/19 04/10/19 04/11/19 06:59 06:59 06:59 Intake Total 1300 1150 Balance 1300 1150 General appearance: PRESENT: cooperative, thin, other - Constantly moving around in bed. Scratching fairly constantly. Head exam: PRESENT: atraumatic, normocephalic Eye exam: PRESENT: conjunctival injection, other - She can keep her left eye open. The swelling is noticeably decreased. Ear exam: PRESENT: normal external ear exam Mouth exam: PRESENT: dry mucosa, neck supple, tongue midline Teeth exam: PRESENT: poor dentation Respiratory exam: PRESENT: clear to auscultation jack, symmetrical, unlabored. ABSENT: accessory muscle use, rales, rhonchi, tachypnea, wheezes Cardiovascular exam: PRESENT: RRR, +S1, +S2, systolic murmur - 2/6 GI/Abdominal exam: PRESENT: normal bowel sounds, soft, tenderness - Nonspecific diffuse tenderness. ABSENT: distended Rectal exam: PRESENT: deferred Musculoskeletal exam: PRESENT: other - The patient exhibits significant hyperflexibility in the torso as well as all extremities. Psychiatric exam: PRESENT: agitated, unusual affect. ABSENT: anxious Focused psych exam: PRESENT: restlessness. ABSENT: delusional Skin exam: PRESENT: other - The skin is very dry. There are areas of excoriation. No pustules noted. Results Laboratory Results: 04/09/19 05:36 04/09/19 05:36 Impressions: Facial Bones CT 04/07/19 06:31 IMPRESSION: Findings consistent with a left periorbital cellulitis with no post septal involvement of the left eye and no fluid collection to suggest abscess. Qualifiers - * PATIENT BEING DISCHARGED WITH ANY OF THE FOLLOWING DIAGNOSIS: No Acute Heart Failure - Is this a Heart Failure Patient?: No Plan Discharge Plan: Patient will be discharged today on antibiotic suspension, prednisolone eyedrops and a small amount of pain medication. She is to follow-up with her primary car e provider as well as ophthalmology. Time Spent: Greater than 30 Minutes
== END 2019-04-10 11:40 | disposition home or self-care (01) | DRG 603 ==
LOC: ER 02:54 → EH 08:50 → OBSVTOIN 08:50 → INTOOBSV 08:50 → 2N 11:30
PROVIDERS: ADMIT Hospitalist; ATTEND Hospitalist
DX: L03.213 Periorbital cellulitis (principal); E44.0 Moderate protein-calorie malnutrition; Z68.1 Body mass index [BMI] 19.9 or less, adult; L20.81 Atopic neurodermatitis; F41.9 Anxiety disorder, unspecified; F17.210 Nicotine dependence, cigarettes, uncomplicated
CPT/HCPCS: 36415; 70487; 80048; 80053; 83735; 84703; 85025; 85027; 87040; 96361; 96365; 96375; 96376; 99284; G0378; J1885; J2270; J2405; J3490; J7030; J7042; S0028

== ENCOUNTER 2019-06-21 00:34 | Emergency (ER) | payer MEDICARE, MEDICAID ==
[2019-06-21 01:07] LABS: AMORPHOUS SEDIMENT,URINE TRACE /HPF; APPEARANCE,URINE CLOUDY; BILIRUBIN,URINE NEGATIVE (NEGATIVE); COLOR,URINE YELLOW; GLUCOSE, URINE NEGATIVE (NEGATIVE); KETONES,URINE TRACE mg/dL (NEGATIVE); LEUKOCYTE ESTERASE,URINE LARGE (NEGATIVE); NITRITE,URINE POSITIVE (NEGATIVE); PROTEIN,URINE 100 mg/dL (NEGATIVE)
[2019-06-21] MEDS ORDERED: LIDOCAINE 1% INJ-PF (10 MG/ML) 30 ML SDV INJ ONE ×2 (01:49→01:58)
[2019-06-21] MEDS ORDERED: CEFTRIAXONE INJ 1000 MG VIAL IM ONE ×2 (01:49→01:58)
[2019-06-21] MEDS ORDERED: PHENAZOPYRIDINE HCL 200 MG TABLET PO ONE (01:51)
--- NOTE | 2019-06-21 02:03 | ER Document Report ---
ED GI/ - General Chief Complaint: Urinary Problem Stated Complaint: POSS UTI Time Seen by Provider: 06/21/19 01:31 Primary Care Provider: ENRRIQUE ALVARADO FNP [Primary Care Provider] - Follow up as needed Mode of Arrival: Ambulatory Information source: Patient, FORMERLY [facility], [facility] Records Notes: This 39-year-old female patient comes emergency room for a 2-day history of frequency and dysuria. She reports she had been on doxycycline for Lyme disease. She is supposed to take it for 28 days, it was started in the beginning of May. She left town did not take medication with her so she never really took very much. She reports she took 1 dose of doxycycline tonight when she was looking for medications that she might start. She actually came the emergency room because she could not find any Pyridium at home. She reports she has an appointment with her primary care provider tomorrow. She states a long history of urinary tract infections, that she is usually treated with Septra successfully. She reports that she had surgery for ureteral reflux as an and that is the reason for her frequent urinary tract infections. The patient reports that she has not been on Dupixent for at least 4 months. She is not on any other immune modulating or immune suppressing medications. She states at the beginning of May she went to her primary care provider for fatigue, headaches, generalized pains. A battery of lobe lab work was done and she was reportedly found to have Lyme disease. TRAVEL OUTSIDE OF THE [place] IN LAST 30 DAYS: No - Related Data Allergies/Adverse Reactions: adhesive tape Allergy (Verified 12/21/18 14:59) diphenhydramine [From Benadryl] Allergy (Verified 12/21/18 14:59) erythromycin base Allergy (Verified 12/21/18 14:59) nafcillin Allergy (Verified 12/21/18 14:59) nickel Allergy (Verified 12/21/18 14:59) Past Medical History - General Information source: Patient, FORMERLY [facility], [facility] Records - Social History Smoking Status: Current Every Day Smoker Cigarette use (# per day): Yes Chew tobacco use (# tins/day): No Smoking Education Provided: No Frequency of alcohol use: Rare Drug Abuse: None Occupation: Unemployed Lives with: Spouse/Significant other Family History: Arthritis, CAD, Malignancy - Prostate, Other - Depression, anxiety, Patient has suicidal ideation: No Patient has homicidal ideation: No - Past Medical History Cardiac Medical History: Neurological Medical History: GI Medical History: Reports: Hx Irritable Bowel Musculoskeletal Medical History: Reports Hx Musculoskeletal Deformity Skin Medical History: Reports Hx Eczema Psychiatric Medical History: Reports: Hx Anxiety, Hx Depression Traumatic Medical History: Reports: Hx Fractures - RIGHT ANKLE bimalleolar fracture Past Surgical History: Reports: Hx Breast Surgery - cyst removal, Hx Section - x2, Hx Tubal Ligation, Hx Urinary Tract Surgery - Urethral reflux surgery as a child., Other - Right ORIF of bimalleolar fracture,Ureter surgery as an infant, gastric Edward - Immunizations Hx Diphtheria, Pertussis, Tetanus Vaccination: Yes Review of Systems - Review of Systems Constitutional: No symptoms reported, Diaphoresis Cardiovascular: No symptoms reported Respiratory: No symptoms reported Gastrointestinal: No symptoms reported Genitourinary: See HPI Female Genitourinary: No symptoms reported Musculoskeletal: No symptoms reported Skin: Dryness, Other - Chronic eczema Hematologic/Lymphatic: No symptoms reported Neurological/Psychological: No symptoms reported Physical Exam - Vital signs Vitals: Temp Pulse Resp BP Pulse Ox 98.7 F 102 H 16 140/60 H 100 06/21/19 00:48 06/21/19 00:48 06/21/19 00:48 06/21/19 00:48 06/21/19 00:48 - General General appearance: Appears well, Alert In distress: None - HEENT Head: Normocephalic, Atraumatic Eyes: Normal Pupils: PERRL Neck: Normal - Respiratory Respiratory status: No respiratory distress - Cardiovascular Rhythm: Regular - Abdominal Inspection: Normal Bowel sounds: Normal Tenderness: Tender - Suprapubic tenderness - Back Back: Normal - Extremities General upper extremity: Normal inspection General lower extremity: Normal inspection - Neurological Neuro grossly intact: Yes - Psychological Associated symptoms: Normal affect, Normal mood - Skin Skin Temperature: Warm Skin Moisture: Dry Skin Color: Normal Course - Re-evaluation Re-evalutation: 06/21/19 02:09 The urinalysis showed too numerous to count WBCs and several RBCs. It was nitrite positive and large leukocyte esterase positive. The patient does have an allergy to nafcillin, however has taken Keflex before with no problems. Reviewing the records shows she received Rocephin IV on 12/18/2018. She will be given a dose of Pyridium, and injection of Rocephin, and prescription for Septra DS. - Vital Signs Vital signs: Temp Pulse Resp BP Pulse Ox 98.7 F 102 H 16 140/60 H 100 06/21/19 00:48 06/21/19 00:48 06/21/19 00:48 06/21/19 00:48 06/21/19 00:48 - Laboratory Laboratory results interpreted by me: 06/21/19 00:50 Urine Protein 100 H Urine Ketones TRACE H Urine Blood MODERATE H Urine Nitrite POSITIVE H Urine Urobilinogen 2.0 H Ur Leukocyte Esterase LARGE H Discharge - Discharge Clinical Impression: Urinary tract infection Qualifiers: Urinary tract infection type: acute cystitis Hematuria presence: with hematuria Qualified Code(s): N30.01 - Acute cystitis with hematuria Condition: Stable Disposition: HOME, SELF-CARE Additional Instructions: Urinary Tract Infection Your evaluation indicates that you have a urinary tract infection. This is due to germs growing in the bladder. This is a common problem. This infection usually responds quickly to antibiotics. Your antibiotic should be taken exactly as prescribed. Drink plenty of fluids -- three to four quarts a day. Occasionally, a bladder anesthetic will be prescribed to help stop the feeling of urgency until the antibiotic has a chance to clear the infection. This may cause your urine to be dark orange. Certain urine infections require a culture. If the doctor obtained a culture, the results will be back in two days. You should call to see if a change in treatment is needed. A repeat urinalysis after you finish treatment is often recommended. The physician will let you know if further testing is required. Call the doctor if you develop fever, chills, flank pain, inability to urinate, or blood in the urine. Take the medications as prescribed. Drink plenty of fluids throughout the day in the evening. Drink cranberry juice to help eliminate the infection more quickly. Follow-up with your primary care provider this week to discuss the doxycycline treatment for your positive Lyme tests. RETURN TO THE EMERGENCY ROOM IF ANY NEW OR WORSENING SYMPTOMS. Prescriptions: Phenazopyridine HCl [Pyridium 100 Mg Tablet] 100 mg PO TID PRN #10 tablet PRN Reason: Sulfamethoxazole/Trimethoprim [Septra-Ds 800-160 mg Tablet] 1 tab PO BID #14 tablet Referrals: ENRRIQUE ALVARADO FNP [Primary Care Provider] - Follow up as needed
[2019-06-21] MEDS ORDERED: ONDANSETRON 4 MG TAB.RAPDIS PO ONE (02:28)
[2019-06-21 02:42] VITALS: BP 132/70
== END 2019-06-21 02:42 | disposition home or self-care (01) ==
LOC: ER 00:34
DX: N30.01 Acute cystitis with hematuria (principal); R35.0 Frequency of micturition; R30.0 Dysuria; L30.9 Dermatitis, unspecified; F17.210 Nicotine dependence, cigarettes, uncomplicated; Z98.890 Other specified postprocedural states; Z87.448 Personal history of other diseases of urinary system; Z88.8 Allergy status to other drugs, medicaments and biological substances; Z91.048 Other nonmedicinal substance allergy status; Z88.1 Allergy status to other antibiotic agents; Z88.0 Allergy status to penicillin
CPT/HCPCS: 87086; 81025; 81001; A9270 ×2; J3490; J0696; 87088; 87186; 96372; 99283; S0119

== ENCOUNTER 2019-06-27 09:52 | Emergency (ER) | payer MEDICARE, MEDICAID ==
[2019-06-27 09:58] VITALS: BP 126/85
--- NOTE | 2019-06-27 10:32 | ER Document Report ---
HPI - HPI Time Seen by Provider: 06/27/19 10:08 Pain Level: Denies Notes: Patient is a 39-year-old female who presents complaining of rash primarily to her extremities that is pruritic and feels like small welts per patient that began over the past day or so. Patient states that she is currently on Bactrim for UTI as well as being on doxycycline since May for Lyme disease. Patient is not aware of any other new exposure to chemicals, detergents, soaps, foods, o r other insect bites. She is able to eat and drink without difficulty. She is urinating normally. Patient states that she cannot have Benadryl, but can have hydroxyzine. She has no other concerns or complaints. She has not noticed any abscess or blistering of her skin. No mouth lesions noted. Denies any headache, fever, neck pain, URI, sore throat, chest pain, palpitations, syncope, cough, shortness of breath, wheeze, dyspnea, abdominal pain, nausea/vomiting/diarrhea, loss of control of bowel or bladder, numbness/tingling, muscle paralysis/weakness. - ROS Systems Reviewed and Negative: Yes All other systems reviewed and negative - CONSTITUTIONAL Constitutional: DENIES: Fever, Chills - REPRODUCTIVE Reproductive: DENIES: : Past Medical History - Social History Smoking Status: Unknown if Ever Smoked Family History: Arthritis, CAD, Malignancy - Prostate, Other - Depression, anxiety, Patient has suicidal ideation: No Patient has homicidal ideation: No - Past Medical History Cardiac Medical History: Neurological Medical History: Renal/ Medical History: Denies: Hx Peritoneal Dialysis GI Medical History: Reports: Hx Irritable Bowel Musculoskeletal Medical History: Reports Hx Musculoskeletal Deformity Skin Medical History: Reports Hx Eczema Psychiatric Medical History: Reports: Hx Anxiety, Hx Depression Traumatic Medical History: Reports: Hx Fractures - RIGHT ANKLE bimalleolar fracture Past Surgical History: Reports: Hx Breast Surgery - cyst removal, Hx Section - x2, Hx Tubal Ligation, Hx Urinary Tract Surgery - Urethral reflux surgery as a child., Other - Right ORIF of bimalleolar fracture,Ureter surgery as an , gastric Edward - Immunizations Hx Diphtheria, Pertussis, Tetanus Vaccination: Yes Vertical Provider Document - CONSTITUTIONAL Agree With Documented VS: Yes Notes: PHYSICAL EXAMINATION: GENERAL: Well-appearing, well-nourished and in no acute distress. HEAD: Atraumatic, normocephalic. EYES: Pupils equal round and reactive to light, extraocular movements intact, sclera anicteric, conjunctiva are normal. ENT: EAC clear b/l. TM's intact b/l without erythema, fluid, or perforation. Nares patent and without discharge. oropharynx clear without exudates. No tonsilar hypertrophy or erythema. Moist mucous membranes. No sinus tenderness. NECK: Normal range of motion, supple without lymphadenopathy LUNGS: Breath sounds clear to auscultation bilaterally and equal. No wheezes rales or rhonchi. HEART: Regular rate and rhythm without murmurs, rubs, gallops. ABDOMEN: Soft, nontender, nondistended abdomen. No guarding, no rebound. No masses appreciated. Normal bowel sounds present. No CVA tenderness bilaterally. Musculoskeletal: FROM to passive/active. Strength 5+/5. Extremities: No cyanosis, clubbing, or edema b/l. Peripheral pulses 2+. Capillary refill less than 3 seconds. NEUROLOGICAL: Cranial nerves grossly intact. Normal speech, normal gait. Normal sensory, motor exams PSYCH: Normal mood, normal affect. SKIN: wheal appearing mildly erythemic areas noted to the legs and arms b/l and very minimally to the trunk. There is no evidence of blistering, skin sloughing, necrosis, abscess, purulence, or oral mucosal involvement. There is no rash to the palms/soles of the feet. Nontender to palpation throughout. - INFECTION CONTROL TRAVEL OUTSIDE OF THE [place] IN LAST 30 DAYS: No Course - Re-evaluation Re-evalutation: 06/27/19 Patient is an afebrile, well-hydrated, 39-year-old female who presents with nonspecific rash, differential considers hives allergic reaction to drug reaction. Vitals are acceptable without significant tachycardia, tachypnea, or hypoxia. PE is otherwise unremarkable. Rash is nontender throughout without blistering or involvement of the oral mucosa/palms/soles. Patient is nontoxic- appearing and is tolerating p.o. without difficulty. Urinalysis unremarkable. Patient is also on doxycycline at this time. Low suspicion for any necrotizing fasciitis, SJS, SSS, drug reaction, sepsis, meningitis, syphilis, Lyme disease, [place] spotted fever, or other systemic emergent condition at this time. Patient aware that condition can change from initial presentation and she needs to monitor symptoms closely and seek medical attention with any acute changes. I will send her home with a short course of steroids as well as hydroxyzine. Patient states that she can have hydroxyzine just not Benadryl. Pt to stop bactrim. Recheck with your PCM in 2 to 3 days. Consider consult with dermatology. Return to the ED with any other worsening/concerning symptoms as reviewed. Patient is in agreement. - Vital Signs Vital signs: Temp Pulse Resp BP Pulse Ox 98.8 F 90 16 126/85 H 100 06/27/19 09:56 06/27/19 09:56 06/27/19 09:56 06/27/19 09:56 06/27/19 09:56 Discharge - Discharge Clinical Impression: Rash and nonspecific skin eruption Condition: Stable Disposition: HOME, SELF-CARE Additional Instructions: Keep the skin clean Wash with soap and water Tylenol/ibuprofen if needed Triple antibiotic ointment daily for any break in the skin Take medication as directed Monitor for any worsening symptoms Recheck with your PCM in 2-3 days Consider consult with dermatology for ongoing/worsening symptoms Return to the ED with any worsening symptoms and/or development of fever, headache, chest pain, palpitations, syncope, shortness of breath, trouble breathing, abdominal pain, n/v/d, abscess, purulent discharge, red streaks, worsening swelling, or other worsening symptoms that are concerning to you. Prescriptions: Prednisone [Deltasone 20 mg Tablet] 3 tab PO DAILY 3 Days tablet Hydroxyzine Pamoate [Vistaril 25 mg Capsule] 25 mg PO TID PRN #15 capsule PRN Reason: Forms: Elevated Blood Pressure Referrals: ENRRIQUE ALVARADO FNP [Primary Care Provider] - Follow up as needed RUPINDER ESCOTO DO [ACTIVE STAFF] - Follow up as needed
[2019-06-27 10:39] LABS: APPEARANCE,URINE CLEAR; BILIRUBIN,URINE NEGATIVE (NEGATIVE); COLOR,URINE AMBER; GLUCOSE, URINE NEGATIVE (NEGATIVE); KETONES,URINE NEGATIVE (NEGATIVE); LEUKOCYTE ESTERASE,URINE NEGATIVE (NEGATIVE); NITRITE,URINE NEGATIVE (NEGATIVE); PROTEIN,URINE 30 mg/dL (NEGATIVE); UROBILINOGEN,URINE NEGATIVE mg/dL (<2.0)
[2019-06-27 10:40] LABS: URINE SPECIFIC GRAVITY 1.019
== END 2019-06-27 10:54 | disposition home or self-care (01) ==
LOC: ER 09:52
DX: R21 Rash and other nonspecific skin eruption (principal); Z98.51 Tubal ligation status
CPT/HCPCS: 81001; 99283